=== PATIENT | male | born 1940 | race Caucasian/White ===

== ENCOUNTER → 2019-12-08 | Outpatient (CLI) | payer MEDICARE ==
[~2019-12-08] MED LIST: ALL10TAB29 PO; ALLO100T PO; ASPI81TA26 PO; FURO40TA2 PO; GASTROGRAFIN SOLUTION 30ML (Q9963) As Ordered ONE; GLIM4TAB5 PO; ISOVUE-370 76% 100ML VIAL (Q9967) As Ordered ONE; LANTINJ4 SC; LOPR1TAB6 PO; NEUR600T PO; PROAAER10 INH; PROB1CAP10 PO; VITMTA PO
--- NOTE | 2019-12-08 17:34 | REP ---
CT of the chest with IV contrast for lymphoma restaging. There are no comparison chest CTs. The patient had a PET scan on 02/17/2014. A PET scan was negative for hypermetabolic foci. There are no lung masses or nodules. There are no infiltrates or pleural effusions. There are a few borderline enlarged lymph nodes in the aorticopulmonic window measuring up to 9 mm. There is no other mediastinal lymph node enlargement. There is a borderline enlarged right hilar node measuring up to 8 mm short axis. There is no left hilar lymph node enlargement. There are enlarged nodes in the axilla bilaterally measuring up to 12 mm short axis. The thoracic aorta is unremarkable except for calcified atheroma. Cardiac size is normal. There is no pericardial effusion. There are no lytic, blastic or destructive skeletal changes. There are sternotomy wires. Impression: There are enlarged axillary nodes bilaterally. There are borderline enlarged mediastinal nodes and a borderline enlarged right hilar node. There are no infiltrates or pleural effusions. There are no lung masses or nodules Electronically Signed by Ck Vallejo MD 12/08/2019 05:26 P
--- NOTE | 2019-12-08 17:55 | REP ---
CT of the abdomen pelvis with IV and oral contrast for restaging lymphoma. The study performed contiguously with the chest CT. There are no comparison abdominal the CT studies. The the patient had a PET scan on 02/17/2014 that was negative for hypermetabolic foci. The hepatic parenchyma is homogeneous and unremarkable. There are tiny gallbladder calculi versus milk of calcium in the gallbladder neck. The gallbladder is otherwise unremarkable. The pancreas and spleen are unremarkable. The adrenals are unremarkable. The kidneys are unremarkable. There is wall thickening of the gastric antrum. This is nonspecific and could be inflammatory or could be from an infiltrative process such as lymphoma. The abdominal aorta is unremarkable. There is no periaortic adenopathy or mass. No mesenteric adenopathy is identified. There is no ascites. The bowel loops are otherwise unremarkable. Pelvis: The appendix is unremarkable. The bladder is unremarkable. There is no adenopathy or ascites. The pelvic bowel loops are unremarkable. There are no lytic, blastic or destructive skeletal changes. There is degenerative disc disease in the lumbar spine. Impression: There is wall thickening of the gastric antrum, nonspecific, artifact from under distension versus inflammatory process versus infiltrative process such as lymphoma. No lymphadenopathy. No ascites. No masses or nodules otherwise. Degenerative disc disease in the lumbar spine. Otherwise, negative CT of the abdomen and pelvis. Electronically Signed by Ck Vallejo MD 12/08/2019 05:46 P
== END ==
LOC: M RAD 13:59
PROVIDERS: ATTEND Internal Medicine Hematology & Oncology
DX: C83.30 Diffuse large B-cell lymphoma, unspecified site (principal); I70.0 Atherosclerosis of aorta
CPT/HCPCS: 71260; 74177; Q9963; Q9967

== ENCOUNTER → 2020-02-19 | Outpatient (CLI) | payer MEDICARE ==
[~2020-02-19] MED LIST changes: +CYCL-707 PO; -GASTROGRAFIN SOLUTION 30ML (Q9963) As Ordered ONE; -ISOVUE-370 76% 100ML VIAL (Q9967) As Ordered ONE; +POTA10CA32 PO
== END ==
LOC: M LABSMTC 08:29
PROVIDERS: ATTEND Anesthesiology
DX: Z01.818 Encounter for other preprocedural examination (principal); Z11.59 Encounter for screening for other viral diseases

== ENCOUNTER 2020-02-22 10:12 | Day surgery (SDC) | payer MEDICARE ==
[~2020-02-22] VITALS: Ht 170.2 cm; Wt 113.4 kg
[~2020-02-22 10:12] MED LIST changes: +NS 1,000 ML IV ONE
[2020-02-22] MEDS ORDERED: LIDOCAINE 2% 100MG/5ML SDV (FOR ANES.) As Ordered ONE (12:32)
[2020-02-22] MEDS ORDERED: propofoL 200 MG/20 ML VIAL As Ordered ONE (12:32)
[2020-02-22] MEDS ORDERED: fentaNYL 100 MCG/2 ML INJECTION (J3010) As Ordered ONE (12:56)
--- NOTE | 2020-02-22 14:07 | ROOR ---
Patient Name: Capo Us Procedure Date: 02/22/2020 1:48 PM Date of : 1940 Age: 79 Room: [facility] Gender: Male Note Status: Finalized Procedure: Upper GI endoscopy Indications: Abnormal CT of the GI tract Providers: Jesse COTTON MD Referring MD: Jackelyn Varghese Md, Paige Jetre MD Requesting Provider: Medicines: Monitored Anesthesia Care Complications: No immediate complications. Procedure: Pre-Anesthesia Assessment: - The heart rate, respiratory rate, oxygen saturations, blood pressure, adequacy of pulmonary ventilation, and response to care were monitored throughout the procedure. The Endoscope was introduced through the mouth, and advanced to the second part of duodenum. The upper GI endoscopy was accomplished without difficulty. The patient tolerated the procedure well. Findings: The examined esophagus was normal. Scattered moderate inflammation characterized by erosions and granularity was found in the gastric antrum. Biopsies were taken with a cold forceps for histology. The examined duodenum was normal. Impression: - Normal esophagus. - Gastritis: multiple scattered erosions, shallow ulcerations in gastric antrum. Biopsied. - Normal examined duodenum. Recommendation: - Await pathology results. - Use a proton pump inhibitor PO daily. - (the script was sent to your pharmacy on file) - Telephone endoscopist for pathology results in 2 weeks. Jesse Cotton MD Jesse COTTON MD 02/22/2020 2:07:11 PM Electronically signed by Jesse COTTON MD Number of Addenda: 0 Note Initiated On: 02/22/2020 1:48 PM Estimated Blood Loss: Estimated blood loss: none.
[2020-02-22 14:20] VITALS: BP 141/67
== END 2020-02-22 14:48 | disposition home or self-care (01) ==
LOC: M OPP 10:12
PROVIDERS: ATTEND Internal Medicine Gastroenterology
DX: K29.70 Gastritis, unspecified, without bleeding (principal); E11.9 Type 2 diabetes mellitus without complications; I10 Essential (primary) hypertension; R93.3 Abnormal findings on diagnostic imaging of other parts of digestive tract; Z79.4 Long term (current) use of insulin; Z79.82 Long term (current) use of aspirin; Z79.899 Other long term (current) drug therapy; Z88.5 Allergy status to narcotic agent; Z86.79 Personal history of other diseases of the circulatory system; Z85.79 Personal history of other malignant neoplasms of lymphoid, hematopoietic and related tissues; Z87.891 Personal history of nicotine dependence
CPT/HCPCS: 43239; 88305; J3010

== ENCOUNTER → 2020-03-07 | Outpatient (CLI) | payer MEDICARE ==
[~2020-03-07] MED LIST changes: -NS 1,000 ML IV ONE; +OMEP-221 PO
--- NOTE | 2020-03-08 15:49 | REP ---
REASON FOR TODAY'S EXAM: Followup CT scan finding of asymmetric spiculated mixed density nodule in the anterior segment of the upper lobe of the left lung. Prior CT/PET of 02/17/2014 was reviewed. That examination was performed for lymphoma staging. Prior CT examination of the chest, 01/28/2020, from an outside institution was reviewed. Latest prior abdominal and pelvic CT exam obtained 12/08/2019 from our institution was also reviewed. After the intravenous administration of 8.94 mCi of FDG-18, triplane whole body PET/CT was performed from the skull base to the midthigh. The mixed density lung nodule seen on the chest CT of 01/28/2020, is abnormally hypermetabolic, having a maximal SUV value of 16.40. In addition, there is hypermetabolic mediastinal adenopathy having maximal SUV values of 14.53. The hypermetabolic lymph nodes are also seen to be enlarged, the size and shape of which have not changed when the CT component of today's exam has been compared to the prior chest CT. There is hypermetabolic lymphadenopathy also seen in the left suprahilar region with an SUV value of 20.54. There is a focus of abnormal hypermetabolic activity seen in the right femoral neck having an SUV value of 7.84. Other focal areas of scattered hypermetabolic activity are additionally seen in the appendicular and particularly axial skeleton. No other areas of abnormal hypermetabolic activity are seen in the neck, chest, abdomen, or pelvis. IMPRESSION: 1. Abnormal hypermetabolic activity seen in the chest, as described above, consistent with malignancy. 2. Hypermetabolic activity seen in the appendicular and particularly axial skeleton, as described above, etiology of which is uncertain. Review of the patient's history reveals that he has not been receiving chemotherapy, so chemoreactive marrow change cannot be responsible for the finding. Reactive marrow changes from other etiologies exist. This needs to be correlated clinically with appropriate followup. If skeletal metastasis from carcinoma of the lung is of clinical concern, then consider followup with gadolinium-enhanced thoracolumbar spine MRI and gadolinium-enhanced pelvic MRI. Electronically Signed by Jona Carbajal DO 03/08/2020 05:06 P
== END ==
LOC: M PLARAD 14:19
PROVIDERS: ATTEND Internal Medicine Pulmonary Disease
DX: R91.1 Solitary pulmonary nodule (principal)
CPT/HCPCS: 78815; A9552

== ENCOUNTER → 2020-04-19 | Outpatient (CLI) | payer MEDICARE ==
[~2020-04-19] MED LIST changes: +ACET1TAB55 PO; -ALL10TAB29 PO; +ATIV1TAB10 PO; +CEPH500C PO; +CETI-24 PO; +HYOS125TA PO; +LAMI1AER EX; +LIDOCAINE 1% MDV 20ML VIAL As Ordered ONE; +MORP20SO3 PO; +MSIR30TA PO; +SENO8.6T10 PO; +SODIUM BICARBONATE 8.4% INJ 50MEQ 50 ML VIAL As Ordered ONE; +TERB1CRE2 TOP; +TRAM50TA2 PO
--- NOTE | 2020-04-19 12:24 | REP ---
PA CHEST X-RAY: Single view. HISTORY: The patient is immediately status post CT guided needle biopsy procedure. FINDINGS: PA chest radiograph demonstrates a nodular density in the left apex representing the biopsy target. There is no evidence of pneumothorax or hydrothorax. The patient status post prior median sternotomy. Heart is not enlarged. Pleural angles are sharp. IMPRESSION: No complication seen. Electronically Signed by Ever Perry MD 04/19/2020 12:51 P
[2020-04-19 14:05] VITALS: BP 117/56
--- NOTE | 2020-04-19 16:53 | REP ---
CT-guided upper left lobe lung biopsy The procedure is performed by KINJAL Boyer, under the direct supervision of Dr. Perry. The risks and benefits of the procedure were explained to the patient and informed consent was obtained both orally and written. Directly prior to the start of the procedure, a formal timeout was done in the exam room. The left upper lobe lung mass was localized using CT guidance. Skin was prepped and draped in the usual sterile fashion. 6 ml of buffered lidocaine was used as a local anesthetic. Using CT guidance a 19/20 gauge coaxial needle biopsy system was inserted and advanced into the nodule. 6 core biopsy samples were obtained and sent to the lab. CT images obtained directly after the biopsy show no evidence of pneumothorax. After the appropriate amount of monitored convalescence the patient was discharged from the department. Reviewed by KINJAL Arias 04/19/2020 04:01 P Electronically Signed by Ever Perry MD 04/19/2020 04:44 P
== END ==
LOC: M IRPRO 09:50
PROVIDERS: ATTEND Internal Medicine Hematology & Oncology
DX: C34.92 Malignant neoplasm of unspecified part of left bronchus or lung (principal)

== ENCOUNTER → 2020-05-04 | Outpatient (CLI) | payer MEDICARE ==
[~2020-05-04] MED LIST changes: -LIDOCAINE 1% MDV 20ML VIAL As Ordered ONE; -SODIUM BICARBONATE 8.4% INJ 50MEQ 50 ML VIAL As Ordered ONE
== END ==
LOC: M ONCR 14:22
PROVIDERS: ATTEND General Practice
DX: C34.12 Malignant neoplasm of upper lobe, left bronchus or lung (principal)

== ENCOUNTER → 2020-05-12 | Outpatient (CLI) | payer MEDICARE ==
[~2020-05-12] MED LIST changes: +PROHANCE 279.3MG/ML 15ML VIAL As Ordered ONE; +PROHANCE 279.3MG/ML 5ML VIAL As Ordered ONE
--- NOTE | 2020-06-23 11:22 | REP ---
WHOLE BODY RADIONUCLIDE BONE SCAN HISTORY: Evaluate metastasis. COMPARISON: None. TECHNIQUE: 21.5 mCi of Technetium-99m MDP is injected and standard whole body bone scan images are acquired. SCINTIGRAPHIC FINDINGS: There is arthritic uptake in each knee, bilaterally in each wrist, and bilaterally at the ankles. There is a focus of increased uptake in the anterior end of the first thoracic rib on the left and there is increased uptake in the region of the manubrium of the sternum. These areas are of uncertain significance. There is degenerative uptake in the cervical spine facet region on the left. There is a mild scoliosis in the thoracic spine, which is dextroconvex. There is degenerative disk uptake in the mid lumbar spine. IMPRESSION: Degenerative disk and osteoarthritic uptake pattern. Focus of increased uptake in the region of the manubrium and in the left anterior first rib of uncertain significance. Metastatic lesions cannot be excluded at these two locations. Correlation with chest CT study could be considered. MTDD
== END ==
LOC: M RAD 07:50
PROVIDERS: ATTEND General Practice
DX: C34.90 Malignant neoplasm of unspecified part of unspecified bronchus or lung (principal)
CPT/HCPCS: 70553; 78306; A9576

== ENCOUNTER → 2020-05-29 | Outpatient (RCR) | payer MEDICARE ==
[~2020-05-29] MED LIST changes: -PROHANCE 279.3MG/ML 15ML VIAL As Ordered ONE; -PROHANCE 279.3MG/ML 5ML VIAL As Ordered ONE
== END ==
LOC: M ONCR 13:58
PROVIDERS: ATTEND General Practice
DX: C34.12 Malignant neoplasm of upper lobe, left bronchus or lung (principal)

== ENCOUNTER → 2020-06-21 | Outpatient (CLI) | payer MEDICARE ==
[~2020-06-21] MED LIST changes: +LIDOCAINE 1% MDV 20ML VIAL As Ordered ONE; +MIDAZOLAM INJ 2MG/2ML VIAL (J2250 PER 1MG) As Ordered ONE; +ceFAZolin 1GM VIAL (J0690 PER 500MG) As Ordered ONE; +diphenhydrAMINE 50MG/ML VIAL (J1200) As Ordered ONE; +fentaNYL 100 MCG/2 ML INJECTION (J3010) As Ordered ONE
[2020-06-21 17:05] VITALS: BP 134/64
--- NOTE | 2020-06-22 09:41 | IRHP ---
[facility] IR Pre-Procedure H & P General Date of Service: Jun 21, 2020 Procedure: Same Day Surgery Interval History and Physical I have seen the patient and reviewed last H & P performed within 30 days. There is no significant interval change. History of Present Illness Chief Complaint The patient is a 79-year-old male admitted with a reason for visit of Lymphoma. PRE-PROCEDURE DIAGNOSIS: lymphoma HEART: normal rate. LUNGS: normal breathing at rest. ASA Classification ASA Classification: III-Severe systemic dis. Mallampati Score: II NPO: Yes Problems with prior sedation: No Obstructive Sleep Apnea: No Plan moderate sedation Allergies Coded Allergies: oxycodone (Verified Adverse Reaction, Severe, MAKES HIM GO CRAZY, 01/26/19) Home Medications Scheduled Allopurinol (Allopurinol), 200 MG PO DAILY, (Reported) Aspirin (Aspirin EC), 81 MG PO DAILY, (Reported) Cetirizine HCl (Cetirizine HCl), 10 MG PO DAILY, (Reported) Cyclobenzaprine HCl (Cyclobenzaprine HCl), 10 MG PO QHS, (Reported) Furosemide (Furosemide), 40 MG PO DAILY, (Reported) Gabapentin (Neurontin), 600 MG PO BID, (Reported) Glimepiride (Glimepiride), 8 MG PO DAILY, (Reported) Insulin Glargine,Hum.rec.anlog (Lantus Solostar), 30 UNIT SC QAM, (Reported) Lactobacillus Acidophilus (Probiotic Acidophilus), 1 CAP PO DAILY, (Reported) Metoprolol Tartrate (Lopressor), 50 MG PO BID, (Reported) Multivitamins (Thera M Plus Tablet), 1 TAB PO EVERY OTHER DAY, (Reported) Omeprazole (Omeprazole), 40 MG PO DAILY, (Reported) Potassium Chloride (Potassium Chloride), 10 MEQ PO DAILY, (Reported) Scheduled PRN Albuterol Sulfate (Proair Hfa), 2 PUFF INH Q4H PRN for SOB/WHEEZING, (Reported) VS, I&O, 24H, Fishbone Vital Signs/I&O Vital Signs Date Time Temp Pulse Resp B/P (MAP) Pulse Ox O2 Delivery O2 Flow Rate FiO2 06/21/20 17:05 92 19 96 Room Air 06/21/20 15:20 2 06/21/20 13:55 98 LUC FRAZIER MD Jun 22, 2020 09:41
--- NOTE | 2020-06-22 09:43 | POST-OPPD ---
Postoperative Procedure Note Date Of Procedure: Jun 21, 2020 Time Of Procedure: 09:42 IR Ultrasound and fluoroscopy-guided port placement. IR Ultrasound of the neck. IR Moderate sedation. Clinical information: Lymphoma. Physician: Dr. Hernandez. Procedure: The patient was advised of the benefits, risks, and alternatives of the procedure and informed consent was obtained. A time-out was performed with verification of the patient's name, MRN, site of procedure and type of procedure to be performed. The patient was positioned in the supine position on the angiographic table. The site was prepped and draped in the usual sterile fashion. Moderate sedation was performed by the physician including the presence of an independent trained observer who assisted and monitored the patient's level of consciousness and physiologic status. Following the administration of fentanyl and Versed , the physician spent 45 minutes of continuous face to face time with the patient. Ultrasound of the neck reveals a patent and compressible right internal jugular vein. A time study technician radiograph reveals median sternotomy wires. The neck and anterior chest wall were anesthetized with lidocaine. The right internal jugular vein was accessed using a microintroducer needle under ultrasound guidance, via a lateral approach. An 018 wire was advanced into the superior vena cava, the needle was removed and a microsheath was placed. An Amplatz wire was then passed into the inferior vena cava. An incision at the internal jugular vein access site and anterior chest wall were made using a scalpel. An incision was made at the anterior chest wall. A small pocket was created using a combination of blunt and sharp dissection. A tunneling device was then used to pass the catheter from the pocket to the neck puncture site. An 8- [employer] Smart power port was then positioned in the pocket. The catheter was then measured and cut. The introducer sheath was exchanged for a peel-away sheath. The catheter was passed through the peel-away sheath into the internal jugular vein and the peel-away sheath was removed. The port tip was positioned at the cavoatrial junction. The port was then accessed with a To needle. The port flushes and aspirates well. The puncture site in the neck was closed. The chest wall incision was then closed with 2-0 Vicryl and 4-0 Monocryl. Glue and Steri- Strips were applied. A sterile dressing was then applied. The patient tolerated the procedure well and was returned to the PRU in stable condition. Estimated blood loss: <5 ml. Complications: None. Conclusion: 1. Successful placement of an 8-[employer] Smart power port via the right internal jugular vein. The port is ready for immediate use. 2. Patient to follow up in IR clinic in 2 weeks. Thank you for this referral. LUC HERNANDEZ MD Jun 22, 2020 09:43
== END ==
LOC: M IRPRO 13:43
PROVIDERS: ATTEND Internal Medicine Hematology & Oncology
DX: C85.90 Non-Hodgkin lymphoma, unspecified, unspecified site (principal)
CPT/HCPCS: 36561; 99152; 99153; C1769; C1788; C1894; J0690; J1200; J1642; J1644; J2250; J3010

== ENCOUNTER 2020-06-26 13:04 | Outpatient (RCR) | payer MEDICARE ==
[~2020-06-26 13:04] MED LIST changes: -ACET1TAB55 PO; -ATIV1TAB10 PO; -CEPH500C PO; -HYOS125TA PO; -LAMI1AER EX; -LIDOCAINE 1% MDV 20ML VIAL As Ordered ONE; -MIDAZOLAM INJ 2MG/2ML VIAL (J2250 PER 1MG) As Ordered ONE; -MORP20SO3 PO; -MSIR30TA PO; -SENO8.6T10 PO; -TERB1CRE2 TOP; -TRAM50TA2 PO; -ceFAZolin 1GM VIAL (J0690 PER 500MG) As Ordered ONE; -diphenhydrAMINE 50MG/ML VIAL (J1200) As Ordered ONE; -fentaNYL 100 MCG/2 ML INJECTION (J3010) As Ordered ONE
== END 2020-06-28 ==
LOC: M ONCR 13:04
PROVIDERS: ATTEND General Practice
DX: C34.12 Malignant neoplasm of upper lobe, left bronchus or lung (principal)

== ENCOUNTER 2020-06-30 16:44 | Inpatient (IN) | payer MEDICARE ==
[~2020-06-30] VITALS: Ht 170.2 cm; Wt 98.1 kg
[2020-06-30 18:20] VITALS: BP 139/73
[2020-06-30 19:09] LABS: BASO % 0.2 % (0.0-1.0); HEMATOCRIT 32.2 % (42.0-52.0); HEMOGLOBIN 10.5 g/dl (13.5-17.5); LYMPH # 0.2 10^3/uL (1.5-5.0); LYMPH % 4.7 % (24.0-44.0); MEAN CORPUSCULAR HGB CONC 32.6 g/dl (32.0-36.5); MONO # 0.3 10^3/uL (0.0-0.8); MONO % 5.5 % (0.0-5.0); NEUTROPHILS # 4.5 10^3/uL (1.5-8.5); NEUTROPHILS % 88.8 % (36.0-66.0); PLATELET COUNT, AUTOMATED 115 10^3/uL (150-450); RED BLOOD COUNT 3.39 10^6/uL (4.30-6.10); WHITE BLOOD COUNT 5.1 10^3/uL (4.0-10.0)
[2020-06-30 19:34] LABS: ALBUMIN 2.7 GM/DL (3.2-5.2); ALT/SGPT 27 U/L (12-78); BILIRUBIN,TOTAL 0.7 MG/DL (0.2-1.0); BLOOD UREA NITROGEN 28 MG/DL (7-18); C REACTIVE PROTEIN QUANTITATIV 2.39 MG/DL (0.00-0.30); CALCIUM LEVEL 8.8 MG/DL (8.8-10.2); CARBON DIOXIDE LEVEL 25 MEQ/L (21-32); CHLORIDE LEVEL 105 MEQ/L (98-107); CREATININE FOR GFR 1.06 MG/DL (0.70-1.30); GLOMERULAR FILTRATION RATE > 60.0 (>35); GLUCOSE, FASTING 137 MG/DL (70-100); POTASSIUM SERUM 5.2 MEQ/L (3.5-5.1); SODIUM LEVEL 135 MEQ/L (136-145); TOTAL PROTEIN 6.6 GM/DL (6.4-8.2)
[2020-06-30 19:48] LABS: ERYTHROCYTE SEDIMENTATION RATE 43 mm/hr (0-20)
--- NOTE | 2020-06-30 19:50 | REPVR ---
PROCEDURE INFORMATION: Exam: XR Bilateral Hips with Pelvis when Performed Exam date and time: 06/30/2020 7:43 PM Age: 79 years old Clinical indication: Hip pain; Bilateral; Additional info: Pain h/o cancer R/O mets TECHNIQUE: Imaging protocol: XR bilateral hips with pelvis when performed. Views: 2 views. COMPARISON: CT ABD PELVIS WITH CONTRAST 12/08/2019 3:49 PM FINDINGS: Bones/joints: Degenerative arthropathy both hip joints. Fracture greater trochanter on the left. Pathologic fracture not excluded. Soft tissues: Unremarkable. IMPRESSION: Fracture greater trochanter on the left. Pathologic fracture not excluded. Electronically signed by: Sergey Bella On 06/30/2020 19:49:54 PM
[2020-06-30] MEDS ORDERED: TERB1CRE2 TOP (19:58)
[2020-06-30] MEDS ORDERED: LAMI1AER EX (19:58)
[2020-06-30] MEDS: HumaLOG INSULIN (NovoLOG) PER UNIT SC SCH (21:00)
[2020-06-30] MEDS ORDERED: LORazepam 2 MG/ML VIAL IV PRN (21:30)
[2020-06-30] MEDS ORDERED: ONDANSETRON 4MG/2ML VIAL IV PRN (21:30)
[2020-06-30] MEDS ORDERED: MORPHINE 2 MG/ML 1ML VIAL (J2270) IV PRN (21:30)
[2020-06-30] MEDS ORDERED: ALBUTEROL 90 MCG/ACT 8GM HFA INHALER INH PRN (21:30)
[2020-06-30 22:00] VITALS: BP 150/68
[2020-06-30] MEDS: CLOTRIMAZOLE 1% TOPICAL CREAM 30GM TOP SCH (22:10)
[2020-06-30] MEDS: GABAPENTIN 300 MG CAP PO SCH (22:11)
[2020-06-30] MEDS: CYCLOBENZAPRINE 10MG TABLET PO SCH (22:11)
[2020-07-01] MEDS ORDERED: DEXTROSE 50% 50 ML SYRINGE IV PRN (00:45)
[2020-07-01] MEDS ORDERED: GLUCAGON INJ 1MG VIAL SC PRN (00:45)
[2020-07-01] MEDS ORDERED: GLUCOSE 4GM CHEW TABLET PO PRN (00:45)
--- NOTE | 2020-07-01 00:48 | HPEPDOC ---
[facility] Medical History & Physical Date of Admission Jun 30, 2020 Date of Service: Jun 30, 2020 Attending Physician: JENNIFER ERVIN MD History and Physical CHIEF COMPLAINT: transfer from [place] HISTORY OF PRESENT ILLNESS: Capo Us is an 79 YO M with history of stage III NSCLC with mets to the pelvis and femoral neck who presented as transfer from [place] for increased pain in left hip. The patient reports increasing difficulty getting around his house and pain out of control with respect to his current oral pain regimen at home. His daughter contacted radiation oncologist, Dr. Jann Villa, at [facility] who recommends palliative radiation therapy to be done on Friday07/03/20. At the time of my interview the patient reports pain is about 7/10 but has improved since he presented at [facility]. In looking at records brought over from [facility] a [facility] form notes that the patient wishes to be "Comfort measures only." Per my discussion with him, this is accurate and he is only seeking pain management at this time, but would like to continue his daily medications, such as his insulin. Given his prognosis and to the extent of his cancer, he will most likely need a Palliative Care or hospice consult in respect to his current wishes. PAST MEDICAL HISTORY: 1. Marginal zone NHL (PDL-1 positive) first diagnosed in 2013 currently undergoing radiation 2. 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 HTN 4. Asthma 5. Gout 6. CAD 7. DM2 PAST SURGICAL HISTORY: 1. Bone marrow biopsy 2. L shoulder surgery 3. Heart bypass SOCIAL HISTORY: Former 2 ppd smoker, quit >30 years ago. Occasional alcohol. Denies illicit drugs FAMILY HISTORY: noncontributory ALLERGIES: Please see below. REVIEW OF SYSTEMS: 10-point ROS was negative other than that stated in HPI above. HOME MEDICATIONS: Please see below. VITAL SIGNS: see below GENERAL: alert and oriented, in no apparent distress, pleasant and conversant in full sentences. HEENT: PERRL, EOMI, Oral mucous membranes are moist without lesions. NECK: The patient has no noted JVD. No adenopathy is appreciated. No thyromegaly CHEST/LUNGS: Lungs are clear bilaterally without rhonchi, rales, or wheezes. There is no subcutaneous air appreciated. There is no tenderness to the chest wall. HEART:Regular rate and rhythm. No murmurs, rubs, or gallops are appreciated. Distal pulses are 2+. No carotid bruits appreciated. ABDOMEN: Soft, nontender, and nondistended. Bowel sounds are positive. No organomegaly is appreciated. No masses are appreciated. There are no peritoneal signs. There is no Winters sign. EXTREMITIES: Trace pitting edema and bilateral lower extremities. There is no focal long bone tenderness or deformity. MUSCULOSKELETAL: Left lower extremity strength 4/5, RLE strength 5/5, no pain with passive leg raise SKIN: The patients skin is warm and dry, without rashes or lesions. PSYCHIATRIC: AAO x 3, normal mood/affect NEUROLOGIC: The patient has 5/5 strength to the upper and lower extremities bilaterally. Sensation is intact throughout. Deep tendon reflexes are 2+ in all four extremities. There are no deficits to the cranial nerves. LABORATORY DATA: See below. IMAGING: HIP XR: FINDINGS: Bones/joints: Degenerative arthropathy both hip joints. Fracture greater trochanter on the left. Pathologic fracture not excluded. Soft tissues: Unremarkable. IMPRESSION: Fracture greater trochanter on the left. Pathologic fracture not excluded. MICROBIOLOGY: Please see below. ASSESSMENT: This is an 79-year-old male with history of non-small cell lung cancer of the left upper lobe metastatic to the pelvis presenting as transfer from [place] for pain management. The patient is known to [facility] radiation oncology and plans are in place for palliative radiation to hip to be done starting on 07/03/2020. The patient is currently comfort measures only but wishes to receive routine daily medications. He will likely need Palliative care consult. PLAN: 1. Non-small cell lung cancer in MARU metastatic to bone: -Pain management with Morphine, Ativan for anxiety -Plan for Radiation Oncology palliative radiation with planning to be done 07/03/20. See note in chart from Dr. Villa -Cancer navigator/Palliative care consult 2. DM2: -Levemir 22u QAM + SSI/hypoglycemic protocol 3. Hx Gout: -Continue Allopurinol 4. HTN: -Continue Metoprolol with hold parameters 5. GERD: -Continue Omeprazole Vital Signs Vital Signs Date Time Temp Pulse Resp B/P (MAP) Pulse Ox O2 Delivery O2 Flow Rate FiO2 06/30/20 18:20 98.1 75 19 139/73 (95) 98 Room Air Laboratory Data Labs 24H Laboratory Tests 2 06/30/20 18:53: Immature Granulocyte % (Auto) 0.8, Neutrophils (%) (Auto) 88.8H, Lymphocytes (%) (Auto) 4.7L, Monocytes (%) (Auto) 5.5H, Eosinophils (%) (Auto) 0.0, Basophils (%) (Auto) 0.2, Neutrophils # (Auto) 4.5, Lymphocytes # (Auto) 0.2L, Monocytes # (Auto) 0.3, Eosinophils # (Auto) 0.0, Basophils # (Auto) 0.0, Nucleated Red Blood Cells % (auto) 0.0, Erythrocyte Sedimentation Rate 43H, Anion Gap 5L, Glomerular Filtration Rate > 60.0, Lactic Acid Level 1.8, Calcium Level 8.8, Total Bilirubin 0.7, Aspartate Amino Transf (AST/SGOT) 45H, Alanine Aminotransferase (ALT/SGPT) 27, Alkaline Phosphatase 113, C-Reactive Protein, Quantitative 2.39H, Total Protein 6.6, Albumin 2.7L, Albumin/Globulin Ratio 0.7 CBC/BMP Laboratory Tests 06/30/20 18:53 Home Medications Scheduled Allopurinol (Allopurinol) 100 Mg Tab, 200 MG PO DAILY Aspirin (Aspirin EC) 81 Mg Tab, 81 MG PO DAILY Cetirizine HCl (Cetirizine HCl) 10 Mg Tab, 10 MG PO DAILY Cyclobenzaprine HCl (Cyclobenzaprine HCl) 10 Mg Tablet, 10 MG PO QHS Furosemide (Furosemide) 40 Mg Tablet, 40 MG PO DAILY Gabapentin (Neurontin) 600 Mg Tab, 600 MG PO BID Glimepiride (Glimepiride) 4 Mg Tab, 4 MG PO DAILY Insulin Glargine,Hum.rec.anlog (Lantus Solostar) 100 Unit/Ml Inj, 22 UNIT SC QAM Lactobacillus Acidophilus (Probiotic Acidophilus) 1 Cap Cap, 1 CAP PO DAILY Metoprolol Tartrate (Lopressor) 50 Mg Tab, 50 MG PO BID Multivitamins (Thera M Plus Tablet) 1 Tab Tab, 1 TAB PO EVERY OTHER DAY Omeprazole (Omeprazole) 40 Mg Capsule.dr, 40 MG PO DAILY Potassium Chloride (Potassium Chloride) 10 Meq Capsule.er, 10 MEQ PO DAILY Terbinafine HCl (Terbinafine) 30 Gm Cream..g., 1 APLCT TOP BID apply to abdomin Scheduled PRN Albuterol Sulfate (Proair Hfa) 108 Mcg/Act Aer, 2 PUFF INH Q4H PRN for SOB/WHEEZING Allergies Coded Allergies: oxycodone (Verified Adverse Reaction, Severe, MAKES HIM GO CRAZY, 01/26/19) A-FIB/CHADSVASC A-FIB History Current/History of A-Fib/PAF?: No GME ATTESTATION GME ATTESTATION My faculty preceptor for this patient encounter was physically present during the encounter and was fully available. All aspects of the patient interview, examination, medical decision making process, and medical care plan development were reviewed and approved by the faculty preceptor. The faculty preceptor is aware and concurs with the plan as stated in the body of this note and will attest to such by his/her cosignature. ATTENDING NOTE TIME OF SERVICE 950PM I reviewed the note and agree with the findings as documented with the following additions/changes Chief compliant: hip pain is an 79 yr old w a hx of metastatic lung cancer who was transferred from [facility] for management of left hip pain likely 2/2 metastatic disease. Plan: pain meds/ AM team to consult Radiation Oncology to determine if he is a Candidate for palliative? Radiation and Palliative care to clarify his goals of care #CAD - c/w ASA and metoprolol #Obesity w BMI of 33.9 complicates care DVT Px w lovenox rest per 's H&P RENETTA BROWN MD Jun 30, 2020 20:48 JENNIFER ERVIN MD Jul 01, 2020 01:25
[2020-07-01 06:00] VITALS: BP 123/60
[2020-07-01] MEDS: HumaLOG INSULIN (NovoLOG) PER UNIT SC SCH ×4 (07:30→21:00)
[2020-07-01] MEDS: LEVEMIR (INSULIN DETEMIR) 1 UNITS/0.01ML SC SCH (08:44)
[2020-07-01] MEDS: allopurinoL 100 MG TAB PO SCH (08:45)
[2020-07-01] MEDS: ASPIRIN 81 MG ENTERIC TAB PO SCH (08:45)
[2020-07-01] MEDS: OMEPRAZOLE 20 MG CAP PO SCH (08:45)
[2020-07-01] MEDS: GABAPENTIN 300 MG CAP PO SCH ×2 (08:45→20:58)
[2020-07-01] MEDS: LACTOBACILLUS ACIDOPHILUS CAP (BACID) PO SCH (08:45)
[2020-07-01] MEDS: ENOXAPARIN 40MG/0.4ML SYRINGE (J1650 PER 10MG) SC SCH (08:45)
[2020-07-01] MEDS: CLOTRIMAZOLE 1% TOPICAL CREAM 30GM TOP SCH ×2 (08:46→20:58)
[2020-07-01] MEDS: FUROSEMIDE 40 MG TAB PO SCH (08:46)
[2020-07-01] MEDS: METOPROLOL TART 50 MG TAB PO SCH ×3 (08:46→21:02)
--- NOTE | 2020-07-01 08:53 | IPNPDOC ---
Date Seen The patient was seen on 07/01/20. Progress Note SUBJECTIVE: Patient was seen and examined at the bedside chart is reviewed. He is lying supine in bed and not moving. Says that his pain is 0 out of 10 when he tries to set up an attempt to ambulate. Patient says that the pain at home had been 7 to 10-10 out of 10 on a pain scale . Located at the left hip. Patient has had no issues overnight. He is currently awaiting evaluation by orthopedic surgery. X- ray of the hip shows pathologic fracture of the left hip. OBJECTIVE PHYSICAL EXAMINATION: VITAL SIGNS: Please see below. GENERAL: Asleep but easily arousable, able to converse without any respiratory distress. Face is symmetric HEENT: PERRL, EOMI, Oral mucous membranes are moist without lesions. Appears his stated age. No cervical lymphadenopathy NECK: No carotid bruit no JVD No thyromegaly CHEST/LUNGS: Lungs are clear bilaterally without rhonchi, rales, or wheezes. Air entry is equal bilaterally. No adventitious breath sounds HEART: S1, S2 Regular rate and rhythm. No murmurs, rubs, or gallops are appreciated. Distal pulses are 2+. No carotid bruits appreciated. ABDOMEN: Soft, nontender, and nondistended. Bowel sounds are positive. No organomegaly is appreciated. No masses are appreciated. . No abdominal bruit EXTREMITIES: Trace pitting edema and bilateral lower extremities. There is no focal long bone tenderness or deformity. MUSCULOSKELETAL: Limited range of motion on the left secondary to severe pain., Unable to flex and extend at the hip on the left SKIN: The patients skin is warm and dry, without rashes or lesions. PSYCHIATRIC: AAO x 3, normal mood/affect NEUROLOGIC: 5 out of 5 strength bilateral upper extremities right lower extremity 5 out of 5 strength. Gait was not tested. Unable to assess left lower extremity due to severe pain LABORATORY DATA, IMAGING STUDIES, MICROBIOLOGY: Please see below. PROCEDURE INFORMATION: Exam: XR Bilateral Hips with Pelvis when Performed Exam date and time: 06/30/2020 7:43 PM Age: 79 years old Clinical indication: Hip pain; Bilateral; Additional info: Pain h/o cancer R/O mets TECHNIQUE: Imaging protocol: XR bilateral hips with pelvis when performed. Views: 2 views. COMPARISON: CT ABD PELVIS WITH CONTRAST 12/08/2019 3:49 PM FINDINGS: Bones/joints: Degenerative arthropathy both hip joints. Fracture greater trochanter on the left. Pathologic fracture not excluded. Soft tissues: Unremarkable. IMPRESSION: Fracture greater trochanter on the left. Pathologic fracture not excluded. Electronically signed by: Sregey Jena On 06/30/2020 19:49:54 PM ASSESSMENT: 79 YO M with history of stage III NSCLC with mets to the pelvis and femoral neck who presented as transfer from [place] for increased pain in left hip. His daughter contacted radiation oncologist, Dr. Jann Villa, at [facility] who recommends palliative radiation therapy to be done on Friday07/03/20. 1. Pathologic fracture of the left greater trochanter secondary to bone metastasis from primary lung cancer 2. 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 HTN 4. Asthma 5. Gout 6. CAD 7. DM2 8. Marginal zone NHL (PDL-1 positive) first diagnosed in 2013 currently undergoing radiation PLAN: Patient is appropriate for palliative care, possible comfort measures and hospice for pain control. He is currently on oral medications and IV for breakthrough pain. Palliative radiation is planned for Friday by radiation oncologist, Dr. Villa. Per patient's wishes. All his home medications have been restarted. He currently has a possible pathologic fracture of the left greater trochanter. Orthopedic surgery has been consulted and oriented. She reviewed the patient's x-ray and determine activity level to prevent further debility and injury. Patient has been encouraged to ask for pain medications. We'll monitor for any side effects including constipation, confusion, respiratory distress. Patient has a very poor overall prognosis. We will defer to his medical oncologist to discuss palliative care and comfort measures VS, I&O, [facility] V[facility] Signs/I&O Vital Signs Date Time Temp Pulse Resp B/P (MAP) Pulse Ox O2 Delivery O2 Flow Rate FiO2 07/01/20 06:00 97.7 86 18 123/60 (81) 96 Room Air I&O- Last 24 Hours up to 6 AM 07/01/20 06:00 Intake Total 220 ml Output Total 500 ml Balance -280 ml Laboratory Data 24H LABS Laboratory Tests 2 06/30/20 18:53: Immature Granulocyte % (Auto) 0.8, Neutrophils (%) (Auto) 88.8H, Lymphocytes (%) (Auto) 4.7L, Monocytes (%) (Auto) 5.5H, Eosinophils (%) (Auto) 0.0, Basophils (%) (Auto) 0.2, Neutrophils # (Auto) 4.5, Lymphocytes # (Auto) 0.2L, Monocytes # (Auto) 0.3, Eosinophils # (Auto) 0.0, Basophils # (Auto) 0.0, Nucleated Red Blood Cells % (auto) 0.0, Erythrocyte Sedimentation Rate 43H, Anion Gap 5L, Glomerular Filtration Rate > 60.0, Lactic Acid Level 1.8, Calcium Level 8.8, Total Bilirubin 0.7, Aspartate Amino Transf (AST/SGOT) 45H, Alanine Aminotransferase (ALT/SGPT) 27, Alkaline Phosphatase 113, C-Reactive Protein, Quantitative 2.39H, Total Protein 6.6, Albumin 2.7L, Albumin/Globulin Ratio 0.7 07/01/20 05:57: Bedside Glucose (Misc Panel) 86 CBC/BMP Laboratory Tests 06/30/20 18:53 RANDI ARGUELLO MD Jul 01, 2020 08:39
[2020-07-01] MEDS ORDERED: ISOVUE-370 76% 100ML VIAL As Ordered ONE (10:47)
--- NOTE | 2020-07-01 11:45 | REPVR ---
PROCEDURE INFORMATION: Exam: CT Left Lower Extremity Without Contrast; Thigh Exam date and time: 07/01/2020 11:04 AM Age: 79 years old Clinical indication: Condition or disease; Other: ? Lesions, known FX; Additional info: FX need thin cuts ! ! CT entire femur ? lesions TECHNIQUE: Imaging protocol: CT of the Left lower extremity without contrast was performed. Exam focused on the thigh. Radiation optimization: All CT scans at this facility use at least one of these dose optimization techniques: automated exposure control; mA and/or kV adjustment per patient size (includes targeted exams where dose is matched to clinical indication); or iterative reconstruction. COMPARISON: Bilateral hip radiographs 06/30/20 FINDINGS: Bones/joints: Multifocal lytic lesions in the visualized left lower extremity including the acetabular roof, proximal left femur, and proximal left tibia, consistent with metastases or multiple myeloma. Pathologic fracture involving the left greater trochanter in association with a 4.1 by 2.2 by 3.0 cm lytic lesion. Degenerative change. Soft tissues: Localized subcutaneous edema in the lateral aspect of the left lower leg and knee. Vasculature: Vascular calcifications. Lymph nodes: Subcentimeter lymph nodes. Bowel: Prominent stool. Bladder: Incompletely visualized contrast filled bladder. Reproductive: Punctate prostate calcifications. IMPRESSION: 1. Multifocal lytic lesions in the visualized left acetabular roof, proximal left femur, and proximal left tibia, consistent with metastases or multiple myeloma. 2. Pathologic fracture involving the left greater trochanter in association with a 4.1 by 2.2 by 3.0 cm lytic lesion. 3. Additional findings as described above. Electronically signed by: Jean Claude Reeder On 07/01/2020 11:44:51 AM
[2020-07-01] MEDS ORDERED: PERCOCET 5MG/325MG TAB PO PRN ×2 (13:45)
[2020-07-01] MEDS ORDERED: MORPHINE 30 MG TAB **MSIR PO PRN (13:45)
[2020-07-01 14:00] VITALS: BP 118/69
[2020-07-01] MEDS ORDERED: NALOXONE INJ 0.4MG/1ML VIAL (J2310 PER 1MG) IV PRN (14:00)
[2020-07-01] MEDS: ACETAMINOPHEN TAB 650MG DOSE (2X325MG) PO PRN ×2 (14:13→20:58)
[2020-07-01 14:40] LABS: HEMATOCRIT 32.9 % (42.0-52.0); HEMOGLOBIN 10.7 g/dl (13.5-17.5); MEAN CORPUSCULAR HEMOGLOBIN 30.9 pg (27.0-33.0); MEAN CORPUSCULAR HGB CONC 32.5 g/dl (32.0-36.5); MEAN CORPUSCULAR VOLUME 95.1 fl (80.0-96.0); PLATELET COUNT, AUTOMATED 132 10^3/uL (150-450); RED BLOOD COUNT 3.46 10^6/uL (4.30-6.10); WHITE BLOOD COUNT 4.4 10^3/uL (4.0-10.0)
[2020-07-01 15:00] LABS: BLOOD UREA NITROGEN 29 MG/DL (7-18); CALCIUM LEVEL 8.7 MG/DL (8.8-10.2); CARBON DIOXIDE LEVEL 30 MEQ/L (21-32); CHLORIDE LEVEL 105 MEQ/L (98-107); CREATININE FOR GFR 0.99 MG/DL (0.70-1.30); GLOMERULAR FILTRATION RATE > 60.0 (>35); GLUCOSE, FASTING 100 MG/DL (70-100); POTASSIUM SERUM 4.2 MEQ/L (3.5-5.1); SODIUM LEVEL 140 MEQ/L (136-145)
[2020-07-01 19:57] VITALS: BP 110/57
[2020-07-01] MEDS: CYCLOBENZAPRINE 10MG TABLET PO SCH (20:58)
[2020-07-02 06:08] VITALS: BP_SYST 113; BP_SYST 130; BP_DIAS 65; BP_DIAS 69
[2020-07-02 07:01] LABS: HEMATOCRIT 33.4 % (42.0-52.0); HEMOGLOBIN 10.9 g/dl (13.5-17.5); MEAN CORPUSCULAR HEMOGLOBIN 31.4 pg (27.0-33.0); MEAN CORPUSCULAR HGB CONC 32.6 g/dl (32.0-36.5); MEAN CORPUSCULAR VOLUME 96.3 fl (80.0-96.0); PLATELET COUNT, AUTOMATED 126 10^3/uL (150-450); RED BLOOD COUNT 3.47 10^6/uL (4.30-6.10); WHITE BLOOD COUNT 4.2 10^3/uL (4.0-10.0)
[2020-07-02 07:17] LABS: BLOOD UREA NITROGEN 25 MG/DL (7-18); CARBON DIOXIDE LEVEL 31 MEQ/L (21-32); CHLORIDE LEVEL 106 MEQ/L (98-107); CREATININE FOR GFR 0.98 MG/DL (0.70-1.30); GLOMERULAR FILTRATION RATE > 60.0 (>35); GLUCOSE, FASTING 64 MG/DL (70-100); POTASSIUM SERUM 4.4 MEQ/L (3.5-5.1); SODIUM LEVEL 141 MEQ/L (136-145)
[2020-07-02] MEDS: HumaLOG INSULIN (NovoLOG) PER UNIT SC SCH ×4 (07:29→21:00)
[2020-07-02] MEDS: ASPIRIN 81 MG ENTERIC TAB PO SCH (08:49)
[2020-07-02] MEDS: METOPROLOL TART 50 MG TAB PO SCH ×2 (08:49→20:47)
[2020-07-02] MEDS: FUROSEMIDE 40 MG TAB PO SCH (08:49)
[2020-07-02] MEDS: allopurinoL 100 MG TAB PO SCH (08:50)
[2020-07-02] MEDS: LEVEMIR (INSULIN DETEMIR) 1 UNITS/0.01ML SC SCH (08:50)
[2020-07-02] MEDS: GABAPENTIN 300 MG CAP PO SCH ×2 (08:50→20:45)
[2020-07-02] MEDS: ENOXAPARIN 40MG/0.4ML SYRINGE (J1650 PER 10MG) SC SCH (08:51)
[2020-07-02] MEDS: LACTOBACILLUS ACIDOPHILUS CAP (BACID) PO SCH (08:51)
[2020-07-02] MEDS: OMEPRAZOLE 20 MG CAP PO SCH (08:51)
[2020-07-02] MEDS: CLOTRIMAZOLE 1% TOPICAL CREAM 30GM TOP SCH ×2 (08:51→20:47)
--- NOTE | 2020-07-02 09:22 | IPNPDOC ---
Date Seen The patient was seen on 07/02/20. Progress Note SUBJECTIVE: Patient was seen and examined at the bedside chart is been reviewed. He says he has no pain when he is laying in bed. Patient has had no fever, chills, no dysuria, urgency, frequency. Tolerating his diet well. Orthopedic surgery was consulted yesterday regarding the left hip, questionable pathologic fracture from history of lung cancer with bone metastasis. He is scheduled to have radiation treatment on Friday. OBJECTIVE PHYSICAL EXAMINATION: VITAL SIGNS: Please see below. GENERAL: Supine awake, alert, oriented to person, place and time. No conversational dyspnea HEENT: Face is symmetric. Tongue is PERRL, EOMI, Oral mucous membranes are moist without lesions. Appears his stated age. No cervical lymphadenopathy NECK: No carotid bruit no JVD No thyromegaly CHEST/LUNGS: Lungs are clear bilaterally without rhonchi, rales, or wheezes. Air entry is equal bilaterally. No adventitious breath sounds HEART: S1, S2 Regular rate and rhythm. No murmurs, rubs, or gallops are appre ciated. Distal pulses are 2+. No carotid bruits appreciated. ABDOMEN: Soft, nontender, and nondistended. Bowel sounds are positive. No organomegaly is appreciated. No masses are appreciated. . No abdominal bruit EXTREMITIES: Trace pitting edema and bilateral lower extremities. There is no focal long bone tenderness or deformity. MUSCULOSKELETAL: Limited range of motion on the left secondary to severe pain., Unable to flex and extend at the hip on the left SKIN: The patients skin is warm and dry, without rashes or lesions. PSYCHIATRIC: AAO x 3, normal mood/affect NEUROLOGIC: 5 out of 5 strength bilateral upper extremities right lower extremity 5 out of 5 strength. Gait was not tested. Unable to assess left lower extremity due to severe pain LABORATORY DATA, IMAGING STUDIES, MICROBIOLOGY: Please see below. PROCEDURE INFORMATION: Exam: CT Left Lower Extremity Without Contrast; Thigh Exam date and time: 07/01/2020 11:04 AM Age: 79 years old Clinical indication: Condition or disease; Other: ? Lesions, known FX; Additional info: FX need thin cuts ! ! CT entire femur ? lesions TECHNIQUE: Imaging protocol: CT of the Left lower extremity without contrast was performed. Exam focused on the thigh. Radiation optimization: All CT scans at this facility use at least one of these dose optimization techniques: automated exposure control; mA and/or kV adjustment per patient size (includes targeted exams where dose is matched to clinical indication); or iterative reconstruction. COMPARISON: Bilateral hip radiographs 06/30/20 FINDINGS: Bones/joints: Multifocal lytic lesions in the visualized left lower extremity including the acetabular roof, proximal left femur, and proximal left tibia, consistent with metastases or multiple myeloma. Pathologic fracture involving the left greater trochanter in association with a 4.1 by 2.2 by 3.0 cm lytic lesion. Degenerative change. Soft tissues: Localized subcutaneous edema in the lateral aspect of the left lower leg and knee. Vasculature: Vascular calcifications. Lymph nodes: Subcentimeter lymph nodes. Bowel: Prominent stool. Bladder: Incompletely visualized contrast filled bladder. Reproductive: Punctate prostate calcifications. IMPRESSION: 1. Multifocal lytic lesions in the visualized left acetabular roof, proximal left femur, and proximal left tibia, consistent with metastases or multiple myeloma. 2. Pathologic fracture involving the left greater trochanter in association with a 4.1 by 2.2 by 3.0 cm lytic lesion. 3. Additional findings as described above. PROCEDURE INFORMATION: Exam: XR Bilateral Hips with Pelvis when Performed Exam date and time: 06/30/2020 7:43 PM Age: 79 years old Clinical indication: Hip pain; Bilateral; Additional info: Pain h/o cancer R/O mets TECHNIQUE: Imaging protocol: XR bilateral hips with pelvis when performed. Views: 2 views. COMPARISON: CT ABD PELVIS WITH CONTRAST 12/08/2019 3:49 PM FINDINGS: Bones/joints: Degenerative arthropathy both hip joints. Fracture greater trochanter on the left. Pathologic fracture not excluded. Soft tissues: Unremarkable. IMPRESSION: Fracture greater trochanter on the left. Pathologic fracture not excluded. Electronically signed by: Sergey Bella On 06/30/2020 19:49:54 PM ASSESSMENT: 79 YO M with history of stage III NSCLC with mets to the pelvis and femoral neck who presented as transfer from [place] for increased pain in left hip. His daughter contacted radiation oncologist, Dr. Jann Villa, at [facility] who recommends palliative radiation therapy to be done on Friday07/03/20. 1. Pathologic fracture of the left greater trochanter secondary to bone metastasis from primary lung cancer.Ct femur07/01/20: Pathologic fracture involving the left greater trochanter in association with a 4.1 by 2.2 by 3.0 cm lytic lesion. Patient is appropriate for palliative care, possible comfort measures and hospice for pain control. He is currently on oral medications and IV for breakthrough pain. Palliative radiation is planned for Friday by radiation oncologist, Dr. Villa. Per patient's wishes. monitor for any side effects including constipation, confusion, respiratory distress. Patient has a very poor overall prognosis. We will defer to his medical oncologist to discuss palliative care and comfort measures 2. 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 Hospice CONSULT to activity level will be deferred to orthopedic surgery due to increased risk of injury with a pathologic fracture of the left hip. 3. HTN, chronic resumed in home meds 4. Asthma, chronic, no acute exacerbation 5. Gout, chronic 6. CAD, chronic. No acute ischemic complaint 7. DM2 on consistentcarbs diet, insulin sliding scale and hypoglycemic protocol 8. Marginal zone NHL (PDL-1 positive) first diagnosed in 2013 currently undergoing radiation , deferred to outpatient medical oncologist for further treatment. VS, I&O, 24H, Fishbone Vital Signs/I&O Vital Signs Date Time Temp Pulse Resp B/P (MAP) Pulse Ox O2 Delivery O2 Flow Rate FiO2 07/02/20 08:49 81 130/65 07/02/20 06:08 98.5 20 97 Room Air I&O- Last 24 Hours up to 6 AM 07/02/20 06:00 Intake Total 1200 ml Output Total 650 ml Balance 550 ml Laboratory Data 24H LABS Laboratory Tests 2 07/01/20 11:23: Bedside Glucose (Misc Panel) 160H 07/01/20 14:25: Nucleated Red Blood Cells % (auto) 0.0, Anion Gap 5L, Glomerular Filtration Rate > 60.0, Calcium Level 8.7L 07/01/20 16:58: Bedside Glucose (Misc Panel) 80L 07/01/20 19:40: Bedside Glucose (Misc Panel) 134H 07/02/20 06:06: Nucleated Red Blood Cells % (auto) 0.0, Anion Gap 4L, Glomerular Filtration Rate > 60.0, Calcium Level 9.0 CBC/BMP Laboratory Tests 07/01/20 14:25 07/02/20 06:06 RANDI ARGUELLO MD Jul 02, 2020 09:15
[2020-07-02] MEDS: ACETAMINOPHEN TAB 650MG DOSE (2X325MG) PO PRN ×2 (10:18→20:46)
[2020-07-02 14:00] VITALS: BP 111/60
--- NOTE | 2020-07-02 16:37 | REPVR ---
PROCEDURE INFORMATION: Exam: XR Left Tibia and Fibula Exam date and time: 07/02/2020 9:22 AM Age: 79 years old Clinical indication: Pain; Lower leg; Left; Additional info: ? FX TECHNIQUE: Imaging protocol: XR Left tibia and fibula. Views: 2 views. COMPARISON: 1. CT FEMUR WITH CONTRAST LEFT 07/01/2020 11:00 AM 2. CR - Knee, Ap, Lat LEFT 07/02/2020 9:10:[address] FEMUR WITH CONTRAST LEFT 07/01/2020 11:00:51 AM 4. PT - PET/CT Skull/mid thigh 03/07/2020 4:03:51 PM 5. SR - NM Bone Scan Whole Body 05/12/2020 9:20:44 AM FINDINGS: Bones/joints: 7 mm questionable subtle lucent lesion in the proximal tibial diaphysis 14.2 cm below the level of the medial tibial plateau. A 2nd more lucent and better defined lesion in the distal tibial diaphysis measuring 5 mm is located 10.5 cm above the level of the tibial plafond. 13.9 cm proximal to the articular surface of the tibial plafond and, there is cortical thickening medially along the mid to distal tibial diaphysis with questionable subtle lucency. This could represent an incomplete small stress fracture, but the periosteal reaction appears relatively mature. Spur formation and ossicles at the distal tip of the lateral malleolus. The included ossicles have corticated margins but are incompletely visualized. No acute fracture. Subcortical lucent ganglion cyst in the medial talar dome suggesting a remote osteochondral injury. The knee joint is not included, but is included on knee radiographs also performed today. Soft tissues: There are surgical clips in the medial lower leg. Vasculature: Multifocal atherosclerotic vascular calcifications. Calcifications in the anterior proximal lower leg are most likely phleboliths. IMPRESSION: 1. Questionable small incomplete stress fracture through the medial cortex of the mid to distal tibial diaphysis. However, the periosteal reaction appears relatively mature and this is of indeterminate age. Suggest further evaluation with MR. 2. Small lucent lesions in the tibial diaphysis of uncertain etiology. These could be further addressed on MR of the lower leg. 3. Prior osteochondral injury in the medial talar dome. Electronically signed by: Karly Pena On 07/02/2020 16:36:25 PM
--- NOTE | 2020-07-02 16:46 | REPVR ---
PROCEDURE INFORMATION: Exam: XR Left Knee Exam date and time: 07/02/2020 9:22 AM Age: 79 years old Clinical indication: Pain; Lower leg; Left; Additional info: ? FX TECHNIQUE: Imaging protocol: XR Left knee. Views: 1 or 2 views. COMPARISON: 1. CT FEMUR WITH CONTRAST LEFT 07/01/2020 11:00 AM 2. NM Bone Scan Whole Body 05/12/2020 9:20:44 AM FINDINGS: Bones/joints: There is no acute fracture. No dislocation. There is medial joint space narrowing. 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 The appearance of minimal cortical discontinuity at the medial tibial eminence is likely related to osteophyte formation in comparison with the CT of the femur 07/01/2020 which includes the knee joint. The lucent lesions seen on CT 07/01/2020 in the medial femoral condyle and lateral tibial plateau are not well visualized radiographically. Soft tissues: Calcifications in the anterior subcutaneous fat of the distal thigh and proximal mid lower leg, most likely phleboliths. Vasculature: Atherosclerotic vascular calcifications are noted. IMPRESSION: 1. No acute fracture. 2. Lucent lesions seen on recent CT in the distal femur and proximal tibia are not visualized radiographically. 3. Tricompartmental osteoarthritis. Electronically signed by: Karly Pena On 07/02/2020 16:46:40 PM
[2020-07-02] MEDS: CYCLOBENZAPRINE 10MG TABLET PO SCH (20:46)
[2020-07-02 22:00] VITALS: BP 110/63
[2020-07-03 06:00] VITALS: BP 137/68
[2020-07-03] MEDS: HumaLOG INSULIN (NovoLOG) PER UNIT SC SCH ×2 (07:30→12:17)
[2020-07-03] MEDS ORDERED: MSIR30TA PO (09:47)
[2020-07-03] MEDS ORDERED: ACET1TAB55 PO (09:47)
[2020-07-03] MEDS ORDERED: SENO8.6T10 PO (09:47)
[2020-07-03] MEDS: ENOXAPARIN 40MG/0.4ML SYRINGE (J1650 PER 10MG) SC SCH (09:50)
[2020-07-03] MEDS: LEVEMIR (INSULIN DETEMIR) 1 UNITS/0.01ML SC SCH (09:50)
[2020-07-03] MEDS: CLOTRIMAZOLE 1% TOPICAL CREAM 30GM TOP SCH (09:50)
[2020-07-03] MEDS: LACTOBACILLUS ACIDOPHILUS CAP (BACID) PO SCH (09:51)
[2020-07-03] MEDS: allopurinoL 100 MG TAB PO SCH (09:51)
[2020-07-03] MEDS: ASPIRIN 81 MG ENTERIC TAB PO SCH (09:51)
[2020-07-03] MEDS: FUROSEMIDE 40 MG TAB PO SCH (09:52)
[2020-07-03] MEDS: OMEPRAZOLE 20 MG CAP PO SCH (09:52)
[2020-07-03 09:53] VITALS: BP 137/68
[2020-07-03] MEDS: METOPROLOL TART 50 MG TAB PO SCH (09:53)
[2020-07-03] MEDS: GABAPENTIN 300 MG CAP PO SCH (09:53)
--- NOTE | 2020-07-03 10:25 | DS.PDOC ---
Discharge Summary General Date of Admission Jun 30, 2020 at 18:05 Date of Discharge 07/03/20 Discharge Summary DISCHARGE DIAGNOSES: DISCHARGE MEDICATIONS: see below CONSULTANTS: ORTHO DR. 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 His daughter contacted radiation oncologist, Dr. Jann Kimball, at [facility] who recommends palliative radiation therapy. HOSPITAL COURSE: Pathologic fracture of the left greater trochanter secondary to bone metastasis from primary lung cancer.Ct femur07/01/20: Pathologic fracture involving the left greater trochanter in association with a 4.1 by 2.2 by 3.0 cm lytic lesion. Patient is appropriate for palliative care, possible comfort measures and hospice for pain control. He is currently on oral medications and did not require IV for breakthrough pain. Palliative radiation is planned f by radiation oncologist, Dr. Kimball. Per patient's wishes. monitor for any side effects including constipation, confusion, respiratory distress. Patient has a very poor overall prognosis. We will defer to his medical oncologist to discuss palliative care and comfort measures. Pt passed HSE and may complete his radiation as outpt. Stage III NSCLC of MARU and mediastinum with metastases to hips: Outpatient medical oncologist discussion regarding recommendations for comfort measures only versus palliative care and continued radiation. Activity level was deferred to orthopedic surgery due to increased risk of injury with a pathologic fracture of the left hip. HTN, chronic resumed in home meds Asthma, chronic, no acute exacerbation Gout, chronic CAD, chronic. No acute ischemic complaint DM2 on consistentcarbs diet, insulin sliding scale and hypoglycemic protocol Marginal zone NHL (PDL-1 positive) first diagnosed in 2013 currently undergoing radiation , deferred to outpatient medical oncologist for further treatment. DISCHARGE PHYSICAL EXAMINATION: VITAL SIGNS: Please see below. GENERAL: Walking with physical therapy with a walker, alert, oriented to person, place and time. No conversational dyspnea HEENT: Face is symmetric. Tongue is midline PERRL, EOMI, Oral mucous membranes are moist without lesions. Appears his stated age. No cervical lymphadenopathy NECK: No carotid bruit no JVD No thyromegaly CHEST/LUNGS: Lungs are clear bilaterally without rhonchi, rales, or wheezes. Air entry is equal bilaterally. No adventitious breath sounds HEART: S1, S2 Regular rate and rhythm. No murmurs, rubs, or gallops are appreciated. Distal pulses are 2+. No carotid bruits appreciated. ABDOMEN: Soft, nontender, and nondistended. Bowel sounds are positive. No organomegaly is appreciated. No masses are appreciated. . No abdominal bruit EXTREMITIES: Trace pitting edema and bilateral lower extremities. There is no focal long bone tenderness or deformity. MUSCULOSKELETAL: Limited range of motion on the left secondary to severe pain,ambulating with PT w walker SKIN: The patients skin is warm and dry, without rashes or lesions. PSYCHIATRIC: AAO x 3, normal mood/affect NEUROLOGIC: 5 out of 5 strength bilateral upper extremities right lower extremity 5 out of 5 strength. Gait was not tested. Unable to assess left lower extremity due to severe pain LABORATORY DATA, IMAGING STUDIES, MICROBIOLOGY: Please see below. PROCEDURE INFORMATION: Exam: CT Left Lower Extremity Without Contrast; Thigh Exam date and time: 07/01/2020 11:04 AM Age: 79 years old Clinical indication: Condition or disease; Other: ? Lesions, known FX; Additional info: FX need thin cuts ! ! CT entire femur ? lesions TECHNIQUE: Imaging protocol: CT of the Left lower extremity without contrast was performed. Exam focused on the thigh. Radiation optimization: All CT scans at this facility use at least one of these dose optimization techniques: automated exposure control; mA and/or kV adjustment per patient size (includes targeted exams where dose is matched to clinical indication); or iterative reconstruction. COMPARISON: Bilateral hip radiographs 06/30/20 FINDINGS: Bones/joints: Multifocal lytic lesions in the visualized left lower extremity including the acetabular roof, proximal left femur, and proximal left tibia, consistent with metastases or multiple myeloma. Pathologic fracture involving the left greater trochanter in association with a 4.1 by 2.2 by 3.0 cm lytic lesion. Degenerative change. Soft tissues: Localized subcutaneous edema in the lateral aspect of the left lower leg and knee. Vasculature: Vascular calcifications. Lymph nodes: Subcentimeter lymph nodes. Bowel: Prominent stool. Bladder: Incompletely visualized contrast filled bladder. Reproductive: Punctate prostate calcifications. IMPRESSION: 1. Multifocal lytic lesions in the visualized left acetabular roof, proximal left femur, and proximal left tibia, consistent with metastases or multiple myeloma. 2. Pathologic fracture involving the left greater trochanter in association with a 4.1 by 2.2 by 3.0 cm lytic lesion. 3. Additional findings as described above. PROCEDURE INFORMATION: Exam: XR Bilateral Hips with Pelvis when Performed Exam date and time: 06/30/2020 7:43 PM Age: 79 years old Clinical indication: Hip pain; Bilateral; Additional info: Pain h/o cancer R/O mets TECHNIQUE: Imaging protocol: XR bilateral hips with pelvis when performed. Views: 2 views. COMPARISON: CT ABD PELVIS WITH CONTRAST 12/08/2019 3:49 PM FINDINGS: Bones/joints: Degenerative arthropathy both hip joints. Fracture greater trochanter on the left. Pathologic fracture not excluded. Soft tissues: Unremarkable. IMPRESSION: Fracture greater trochanter on the left. Pathologic fracture not excluded. Electronically signed by: Sergey Bella On 06/30/2020 19:49:54 PM TIME SPENT ON DISCHARGE: 30 MIN Vital Signs/I&Os Vital Signs Date Time Temp Pulse Resp B/P (MAP) Pulse Ox O2 Delivery O2 Flow Rate FiO2 07/03/20 09:53 84 137/68 07/03/20 06:00 98.9 17 94 Room Air I&O- Last 24 Hours up to 6 AM 07/03/20 06:00 Intake Total 1810 ml Balance 1810 ml Laboratory Data Labs 24H Laboratory Tests 2 07/02/20 12:31: Bedside Glucose (Misc Panel) 131H 07/02/20 17:01: Bedside Glucose (Misc Panel) 134H 07/02/20 19:42: Bedside Glucose (Misc Panel) 157H 07/03/20 07:41: Bedside Glucose (Misc Panel) 95 FSBS Laboratory Tests Test 07/02/20 12:31 07/02/20 17:01 07/02/20 19:42 07/03/20 07:41 Range/Units Bedside Glucose (Misc Panel) 131 134 157 95 83-110 MG/DL Discharge Medications Scheduled Allopurinol (Allopurinol) 100 Mg Tab, 200 MG PO DAILY, (Reported) Aspirin (Aspirin EC) 81 Mg Tab, 81 MG PO DAILY, (Reported) Cetirizine HCl (Cetirizine HCl) 10 Mg Tab, 10 MG PO DAILY, (Reported) Cyclobenzaprine HCl (Cyclobenzaprine HCl) 10 Mg Tablet, 10 MG PO QHS, (Reported) Furosemide (Furosemide) 40 Mg Tablet, 40 MG PO DAILY, (Reported) Gabapentin (Neurontin) 600 Mg Tab, 600 MG PO BID, (Reported) Glimepiride (Glimepiride) 4 Mg Tab, 4 MG PO DAILY, (Reported) Insulin Glargine,Hum.rec.anlog (Lantus Solostar) 100 Unit/Ml Inj, 22 UNIT SC QAM, (Reported) Lactobacillus Acidophilus (Probiotic Acidophilus) 1 Cap Cap, 1 CAP PO DAILY, (Reported) Metoprolol Tartrate (Lopressor) 50 Mg Tab, 50 MG PO BID, (Reported) Multivitamins (Thera M Plus Tablet) 1 Tab Tab, 1 TAB PO EVERY OTHER DAY, (Reported) Omeprazole (Omeprazole) 40 Mg Capsule.dr, 40 MG PO DAILY, (Reported) Potassium Chloride (Potassium Chloride) 10 Meq Capsule.er, 10 MEQ PO DAILY, (Reported) Terbinafine HCl (Terbinafine) 30 Gm Cream..g., 1 APLCT TOP BID, (Reported) apply to abdomin Scheduled PRN Acetaminophen (Acetaminophen) 325 Mg Tablet, 650 MG PO Q4HP PRN for PAIN OR FEVER Albuterol Sulfate (Proair Hfa) 108 Mcg/Act Aer, 2 PUFF INH Q4H PRN for SOB/WHEEZING, (Reported) Morphine Sulfate (Morphine Sulfate) 30 Mg Tablet, 15 MG PO Q4HP PRN for SEVERE PAIN (PS 8-10) Sennosides/Docusate Sodium (Senokot-S Tablet) 1 Each Tablet, 1 TAB PO BIDP PRN for CONSTIPATION Allergies Coded Allergies: oxycodone (Verified Adverse Reaction, Severe, MAKES HIM GO CRAZY, 01/26/19) RANDI ARGUELLO MD Jul 03, 2020 10:25
--- NOTE | 2020-07-03 12:57 | MEDONCPDOC ---
Med Onc Office Note.txt Date of Visit Jul 03, 2020 Office Note Visited patient at bedside today. He reports that his left hip pain is well controlled and he is ambulating. No pain elsewhere in the pelvis or right hip. States pain started evening when he was ambulating and heard and felt a 'pop' in the left hip. Presume this was the pathologic fracture of the greater trochanter on the left. Pain has since improved and is largely functional. While I am concerned about the stability of the left hip half-way, I doubt that surgery would be in his best interest at this time. He states an orthopedic Dr. saw him and said as much. I discussed continuing palliative RT to the MARU today which he agreed to. The intent is to lessen mass effect on the left recurrent laryngeal nerve which is being compressed and causing hoarseness. As he has no significant pulmonary side effects at this time (he has a baseline cough and PATRICK) I see no downside for him to complete this course. He has ~2.5 weeks of treatment remaining. I also believe he would benefit from palliative RT to the left hip which ultimately may promote healing and remineralization of the fracture as well as assist with acute pain. He agrees. We will do the planning scan for this after his thoracic RT appointment today. I will give 20 Gy in 5 fractions. Treatment can resume as an outpatient to both sites once he is discharged. Patient states he would be willing to consider additional systemic therapy if the side effects weren't too bad. Dr. Zuleta is aware of the patient's situation and can advise in the outpatient setting as well. CC TO: Primary Care Provider: PCP,Unknown Referring Provider: MOOSE KIMBALL MD Jul 03, 2020 12:56
--- NOTE | 2020-07-05 08:11 | CR ---
DATE OF CONSULTATION: 07/01/2020 CHIEF COMPLAINT: Left hip pain. HISTORY OF PRESENT ILLNESS: Capo Us is an 79-year-old male with a history of lung cancer with known metastases to the pelvis and femoral neck. Patient had an increase in left hip pain. He had an incident where he slid out of his reclining chair and was unable to get up. He was brought to [facility] and then transferred to [facility]. He was found to have a pathologic fracture of the greater trochanter of his left hip on x-rays. Patient is primarily admitted for pain management. He is getting palliative radiation and is scheduled to go on Friday for this. He states he is actually feeling much better today, on the date of consultation, which is 07/01/2020. His hip pain is starting to improve. He has been able to stand to use the restroom. He is potentially going to be moving in with his daughter. PAST MEDICAL HISTORY: 1. Marginal zone non-Hodgkin lymphoma (NHL). 2. Stage III non-small cell lung cancer (NSCLC) with known metastases to the left lower extremity. 3. Hypertension. 4. Asthma. 5. Gout. 6. Coronary artery disease. 7. Type 2 diabetes. PAST SURGICAL HISTORY: 1. Bone marrow biopsy. 2. Left shoulder surgery. 3. Heart bypass. SOCIAL HISTORY: He is a former two pack per day smoker, he quit 30 years ago. He occasionally uses alcohol. Review of systems are reviewed and noted. ALLERGIES: OXYCODONE. HOME MEDICATIONS: - allopurinol - aspirin - cetirizine - cyclobenzaprine - furosemide - Neurontin - glimepiride - insulin - probiotics - Lopressor - multivitamin - omeprazole - potassium chloride - terbinafine PHYSICAL EXAMINATION: General: Well-appearing, alert and oriented, no acute distress. Chest: Regular, nonlabored breathing. Abdomen: Soft, nontender. Musculoskeletal: There is mild pain with palpation along the lateral aspect of the hip. No groin pain. Mild pain with internal and external rotation. He is neurovascularly intact distally in the left lower extremity. No significant pain or swelling about the knee either in the proximal tibia or distal femur. IMAGING: Patients hip x-rays and CT of the femur are reviewed. He does have a displaced greater trochanteric fracture which is pathologic. There are multiple lytic lesions in the left acetabulum, proximal left femur, and proximal left tibia which are consistent with metastases. I also reviewed the left knee and tibia films. The lytic lesions are not as apparent but there are no other obvious fractures seen on these exams. IMPRESSION: Left pathologic fracture to the greater trochanter with multiple metastatic lesions to the left acetabulum, left proximal femur, and left tibia. PLAN: A long discussion was held with the patient regarding options for treatment. The fracture does not appear to pass the intertrochanteric region on his x-ray or CT scan. His pain is improving. At this point, I think this is reasonable to treat nonoperatively and keep a close eye on things. There is a chance the fracture does not heal given it is a pathologic lesion. He does need to start using a walker for support. If he starts to have any increasing groin pain or hip pain he would need an MRI of the left hip to evaluate any further fracture propagation as this is a more sensitive study. However, given that he is doing better at this time, I think it is reasonable to see how things go over the next couple of days and he agrees with this. He does need to be careful again given the many lesions in his acetabulum, femur, and even his proximal tibia. He is at high risk for further fracture, especially with a fall. He should be seen for followup in the next 1-2 weeks in the orthopaedic clinic after discharge. Patient is in agreement with this plan and mainly would like to be here for pain control and avoid surgery if at all possible. At this point, I think that is a reasonable plan. Again, if he starts having increasing pain in the hip or groin, orthopaedics should be notified and at this point we would pursue an MRI of the left hip. KATHERINE
== END 2020-07-03 16:10 | disposition home health service (06) | DRG 543 ==
LOC: M MS5PR 18:05
PROVIDERS: ADMIT General Practice; ATTEND General Practice
DX: M84.552A Pathological fracture in neoplastic disease, left femur, initial encounter for fracture (principal); C88.4 Extranodal marginal zone B-cell lymphoma of mucosa-associated lymphoid tissue [MALT-lymphoma]; C34.12 Malignant neoplasm of upper lobe, left bronchus or lung; C79.51 Secondary malignant neoplasm of bone; C78.1 Secondary malignant neoplasm of mediastinum; Z51.5 Encounter for palliative care; I10 Essential (primary) hypertension; J45.909 Unspecified asthma, uncomplicated; M10.9 Gout, unspecified; E66.9 Obesity, unspecified; Z66 Do not resuscitate; I25.10 Atherosclerotic heart disease of native coronary artery without angina pectoris; E11.9 Type 2 diabetes mellitus without complications; G89.3 Neoplasm related pain (acute) (chronic); Z87.891 Personal history of nicotine dependence; Z95.1 Presence of aortocoronary bypass graft; Z79.82 Long term (current) use of aspirin; Z79.4 Long term (current) use of insulin; Z79.899 Other long term (current) drug therapy; Z88.5 Allergy status to narcotic agent; Z68.33 Body mass index [BMI] 33.0-33.9, adult

== ENCOUNTER → 2020-07-06 09:45 | Outpatient (RCR) | payer MEDICARE ==
[2018-11-27 11:30] VITALS: BP 139/73
[2018-11-27 12:05] LABS: BASO # 0.2 10^3/uL (0.0-0.2); BASO % 1.9 % (0.0-1.0); EOS # 1.5 10^3/uL (0.0-0.50); EOS % 15.9 % (0.0-3.0); HEMATOCRIT 47.4 % (42.0-52.0); HEMOGLOBIN 15.8 g/dl (13.5-17.5); LYMPH # 3.5 10^3/uL (1.5-4.5); LYMPH % 36.5 % (24.0-44.0); MEAN CORPUSCULAR HEMOGLOBIN 31.2 pg (27.0-33.0); MEAN CORPUSCULAR HGB CONC 33.3 g/dl (32.0-36.5); MEAN CORPUSCULAR VOLUME 93.5 fl (80.0-96.0); MONO # 0.9 10^3/uL (0.0-0.8); MONO % 9.8 % (0.0-5.0); NEUTROPHILS # 3.4 10^3/uL (1.8-7.7); NEUTROPHILS % 35.5 % (36.0-66.0); PLATELET COUNT, AUTOMATED 177 10^3/uL (150-450); RED BLOOD COUNT 5.07 10^6/uL (4.30-6.10); WHITE BLOOD COUNT 9.5 10^3/uL (4.0-10.0)
[2018-11-27 13:19] LABS: ALBUMIN 4.4 GM/DL (3.5-5.2); BLOOD UREA NITROGEN 25 MG/DL (6-20); CALCIUM LEVEL 10.2 MG/DL (8.5-10.2); CARBON DIOXIDE LEVEL 29 MEQ/L (23-31); CHLORIDE LEVEL 99 MMOL/L (98-107); CREATININE FOR GFR 1.36 MG/DL (0.90-1.30); GLOMERULAR FILTRATION RATE 53.8 (>42); GLUCOSE, FASTING 200 MG/DL (70-105); POTASSIUM SERUM 4.3 MMOL/L (3.5-5.1); SODIUM LEVEL 138 MMOL/L (136-145); TOTAL PROTEIN 8.3 GM/DL (6.4-8.3)
--- NOTE | 2018-12-01 08:39 | MEDONC ---
MEDICAL ONCOLOGY FOLLOWUP DATE OF SERVICE: 11/27/2018 Capo is seen today by Maia Ibanez NP with Dr. Vangie Holland the supervising physician. DIAGNOSIS: Jesica marginal zone lymphoma diagnosed 2013, based on a left axillary lymph node biopsy November 2013 showing low grade B-cell lymphoproliferative neoplasm. Bone marrow aspiration and biopsy December 2013 showing jesica marginal zone lymphoma involving the bone marrow. PET scan 2012 showing no hypermetabolic uptake in lymph nodes. Capo is followed expectantly. HISTORY OF PRESENT ILLNESS: Capo presents today for a scheduled 6-month followup visit. To briefly review, he was seen most recently by Dr. Ng of this practice on 05/20/2018. To date, Capo has been followed expectantly with no indication for initiation of treatment. At present, he claims to be in his usual state of health. He specifically denies complaints of palpable lymphadenopathy, diminished appetite, unintended weight loss, drenching night sweats, fevers or chills. He also adamantly denies complaints of headache, visual disturbance, dyspnea, persistent cough, new lumps or bumps, skin rashes, new skeletal pain, diminished appetite, unintended weight loss, or extremity edema. PHYSICAL EXAMINATION: Weight is 112 kg, temperature 96.6, pulse 55, respirations 16, BP 139/73, O2 sat 97% at rest on room air. GENERAL EXAM: Reveals a very pleasant older gentleman who is comfortable and in no acute distress. HEENT: No scleral icterus. Oral pharynx, oral mucous membranes normal. Conjunctivae normal. No thyroid enlargement or nodule. No jugular venous distention. Neck supple. Carotid upstrokes 1+, no bruits. Fundi normal bilaterally. RESPIRATORY: Lungs clear bilaterally to auscultation and percussion. No rales, rhonchi, or wheezing. CARDIOVASCULAR: PMI 5th left intercostal space, midline. S1, S2 normal. No S3, S4 or murmurs. Regular rhythm. Femoral, dorsalis pedis pulses 2+ bilaterally. LYMPHATICS: No palpable lymphadenopathy. ABDOMEN: Soft, nontender. Bowel sounds normal. No tenderness, guarding, or rebound. No palpable masses or hepatosplenomegaly. MUSCULOSKELETAL: No focal skeletal tenderness to percussion. No joint swelling, warmth, tenderness, or erythema. SKIN: No rash, ecchymosis, or petechiae. Normal turgor. EXTREMITIES: No edema, clubbing, cyanosis. No thigh or calf tenderness. Normal range of motion. LABORATORY DATA: WBC 9.5, ANC 3.4, RBC 5.07, H/H 15.8/47.4 and platelets 177. Chemistries are unremarkable with the exception of a minimally elevated creatinine of 1.36 and nonfasting glucose of 200. LDH is within normal parameters. ASSESSMENT/PLAN: Capo is a very pleasant 78-year-old male who remains completely asymptomatic (no constitutional B symptoms) attributable to marginal zone lymphoma at this time. ECOG performance status is 0. The patient's CBC today is within normal parameters. Chemistries are also unremarkable with the exception of a chronically elevated nonfasting glucose and a minimally elevated creatinine. At this time, there is no indication for any additional diagnostic imaging or therapeutic intervention. We will continue to follow Capo carefully and he will return for follow-up visit in 6 months with labs, certainly sooner if any new symptoms, questions or problems. Reviewed by Maia Ibanez NP 12/01/2018 12:45 P Edited and Electronically Signed by Vangie Holland MD 12/16/2018 08:03 P DD: Maia Ibanez NP 11/30/2018 06:56 A DT: [email or web address] 12/01/2018 08:25 A CC: Moiz Mejia MD
[2019-06-01 10:30] VITALS: BP 124/66
[2019-06-01 10:38] LABS: BASO # 0.2 10^3/uL (0.0-0.2); EOS # 1.4 10^3/uL (0.0-0.5); EOS % 16.3 % (0.0-3.0); HEMATOCRIT 43.6 % (42.0-52.0); HEMOGLOBIN 15.1 g/dl (13.5-17.5); LYMPH # 3.4 10^3/uL (1.5-5.0); LYMPH % 38.4 % (24.0-44.0); MEAN CORPUSCULAR HEMOGLOBIN 32.3 pg (27.0-33.0); MEAN CORPUSCULAR HGB CONC 34.6 g/dl (32.0-36.5); MEAN CORPUSCULAR VOLUME 93.2 fl (80.0-96.0); MONO # 0.9 10^3/uL (0.0-0.8); MONO % 10.3 % (0.0-5.0); NEUTROPHILS # 2.9 10^3/uL (1.5-8.5); NEUTROPHILS % 32.4 % (36.0-66.0); PLATELET COUNT, AUTOMATED 161 10^3/uL (150-450); RED BLOOD COUNT 4.68 10^6/uL (4.30-6.10); WHITE BLOOD COUNT 8.9 10^3/uL (4.0-10.0)
[2019-06-01 11:07] LABS: ALBUMIN 3.8 GM/DL (3.2-5.2); BILIRUBIN,TOTAL 0.6 MG/DL (0.2-1.0); CALCIUM LEVEL 9.2 MG/DL (8.8-10.2); CREATININE FOR GFR 1.37 MG/DL (0.70-1.30); GLOMERULAR FILTRATION RATE 53.4 (>42); POTASSIUM SERUM 4.7 MEQ/L (3.5-5.1)
--- NOTE | 2019-06-02 12:28 | MEDONC ---
HEMATOLOGY/ONCOLOGY PROGRESS NOTE DATE OF SERVICE: 06/01/2019 REASON FOR VISIT: This is a very pleasant 78-year-old gentleman who is here today for routine followup of normal marginal zone B-cell non-Hodgkin's lymphoma on active surveillance. Past medical history goes back to presentation with left axillary lymph nodes back in December 2013. The patient underwent a bone marrow biopsy as part of his staging and was consistent with a marginal zone lymphoma. The patient had not presented with any B symptoms and had stable hemoglobin/hematocrit and platelets. As a result, he had continued to be monitored and no treatment had been given. Please note that the patient had a PET scan in 2012 showing no hypermetabolic uptake in the lymph nodes. PAST MEDICAL HISTORY: Includes non-insulin dependent diabetes and hypertension. ALLERGIES: - OXYCODONE MEDICATIONS: Include albuterol 2 puffs q.4-6 hours, allopurinol 100 mg p.o. daily, aspirin 81 mg p.o. daily, cetirizine 10 mg p.o. daily, gabapentin 600 mg p.o. b.i.d., glimepiride 4 mg p.o. b.i.d., Lantus Insulin 35 units subcu q. P.m., lactobacillus acidophilus probiotic 1 capsule p.o. daily, Lopressor 50 mg p.o. b.i.d. REVIEW OF SYSTEMS: 1. CONSTITUTIONAL: Tiredness and fatigue at the end of the day and some minor arthralgias. No weight loss, fever chills or night sweats. 2. EYES: No blurring of vision, no visual loss partial or complete, no tearing, redness. 3. EAR, NOSE, THROAT and MOUTH: No hearing loss, sinusitis, sore throat, dental problems, tooth pain. Denies dysphagia, mouth sores, bleeding. 4. RESPIRATORY: Denies asthma, wheezing, cough, sputum production. 5. GI: No nausea, vomiting, diarrhea or constipation, change in color or caliber of stool. No hemorrhoids. No rectal bleeding. No hematemesis, heartburn. 6. : No hematuria, dysuria, frequency, stones. 7. CV: No chest pain, palpitations, murmur, fainting, lightheadedness or chest pressure. 8. ENDOCRINE: No cold or heat intolerance, diabetes, polyuria, polydipsia. 9. MUSCULOSKELETAL: No new joint stiffness, joint swelling, myalgias, gout. 10. ALLERGY/IMMUNOLOGY: No new allergies to food, medications. 11. HEMATOLOGICAL: Denies bruising, bleeding, lymph node enlargement. 12. PSYCHIATRIC: Denies depression, agitation, memory loss, panic attacks. 13. SKIN: Denies rashes, moles, dryness, pigment changes. 14. NEUROLOGIC: Denies dizziness, syncope, seizures, vertigo, weakness, tremor. PHYSICAL EXAMINATION: CONSTITUTIONAL: ECOG status 1/4. Temperature 96.5. Pulse 64. Respiratory rate 18. BP 124/66. Pulse oximetry 96. HEENT: NC. AT, PERRL, EOMI, sclera is white, nonicteric, nares intact, oropharynx clear, no thrush, no buccal lesions, tongue without lesions, facial area without abnormalities. NECK: Trachea midline. No thyromegaly. No masses. CHEST: Normal AP diameter. No truncal lesions noted. No rales, rhonchi or wheezes noted. Clear to auscultation and percussion. Some truncal obesity. Spleen is difficult to ascertain due to large truncal obesity. CV: S1 and S2 appreciated, no murmurs, gallops or rubs. Rhythm RR. ABDOMEN: Soft, nontender. No HSM. No ascites. No guarding or rebound. : No CVA tenderness. Normal external genitalia, normal secondary sexual characteristics. EXTREMITIES: Upper extremities: No edema, swelling, abnormalities. Lower extremities show no cyanosis, clubbing or edema. No varicosities. Good capillary filling noted on right and left lower extremity. NEUROLOGICAL: Cranial nerves II- XII intact. No focal deficits, motor and sensory intact, no tremor. VASCULAR: Pulses equal and present in upper extremities and lower extremities. Good capillary filling in lower extremities. No carotid bruits. No abdominal bruits. MUSCULOSKELETAL: No point tenderness. Normal spinal alignment. Range of motion joints, no limitation. SKIN: No lesions, rashes noted. PSYCH: No agitation, normal behavior. LABORATORY DATA: His WBC count is 8.9, hemoglobin is 15.1 over 43.6, RDW is 13.8, platelets of 161, neutrophils of 32.4, lymphocytes of 38.4, basophils of 2. Serum chemistries show a sodium of 137, potassium 4.7, chloride 103, CO2 of 29, BUN 21, creatinine is 1.37, GFR is 53.4, total bilirubin 0.6, AST 25, ALT 28, alkaline phosphatase of 56. 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 PLAN: To continue observation only. Monitor the patient every 6 months. Get a CBC, CMP, LDH. The patient has been advised that if he has fever, night sweats or weight loss to please contact us sooner. Electronically Signed by Elsa Ferrera MD 06/03/2019 07:51 A DD: Elsa Ferrera MD 06/01/2019 05:30 P DT: [email or web address] 06/02/2019 12:09 P CC: Moiz Mjeia MD
[2019-11-30 10:36] LABS: BASO # 0.2 10^3/uL (0.0-0.2); BASO % 1.9 % (0.0-1.0); EOS # 1.5 10^3/uL (0.0-0.5); HEMATOCRIT 41.8 % (42.0-52.0); HEMOGLOBIN 14.2 g/dl (13.5-17.5); LYMPH % 36.7 % (24.0-44.0); MEAN CORPUSCULAR VOLUME 94.1 fl (80.0-96.0); MONO # 0.8 10^3/uL (0.0-0.8); NEUTROPHILS # 2.7 10^3/uL (1.5-8.5); NEUTROPHILS % 32.8 % (36.0-66.0); PLATELET COUNT, AUTOMATED 165 10^3/uL (150-450); RED BLOOD COUNT 4.44 10^6/uL (4.30-6.10); WHITE BLOOD COUNT 8.2 10^3/uL (4.0-10.0)
[2019-11-30 10:53] VITALS: BP 133/64
[2019-11-30 11:01] LABS: ALBUMIN 3.6 GM/DL (3.2-5.2); BILIRUBIN,TOTAL 0.5 MG/DL (0.2-1.0); CALCIUM LEVEL 9.5 MG/DL (8.8-10.2); CREATININE FOR GFR 1.27 MG/DL (0.70-1.30); GLOMERULAR FILTRATION RATE 58.1 (>35); POTASSIUM SERUM 4.4 MEQ/L (3.5-5.1); TOTAL PROTEIN 8.2 GM/DL (6.4-8.2)
--- NOTE | 2019-12-03 09:11 | MEDONC ---
DATE OF SERVICE: 11/30/2019 REASON FOR FOLLOWUP: Non-Hodgkin lymphoma. DIAGNOSIS AND TREATMENT HISTORY: Per prior notes. (Jesica likely) Marginal zone NHL per BM bx- see work-up below. - 2013 - presented with left axillary LAD. - 12/15/2013 - Left axillary LN core bx flow cytometry - atypical lymphoid proliferation w/ predominantly small lymphocytes worrisome for low grade B-cell lymphoproliferative neoplasm. Flow cytometry - small clonal B-cell population, however, further classification not possible due to limited sample. 01/07/2014, BM Bx - Marginal zone lymphoma. As of today's dictation remainder of the studies, flow cytometry, cytogenetics and FISH report requested. Specimen was sent to [facility]. Per prior notes, he had no B symptoms, had stable hemoglobin/hematocrit and platelets. 2012 PET scan - no hypermetabolic uptake in LN. Was followed expectantly with active surveillance. INTERVAL HISTORY: Met patient for the first time today. States he feels well. Denies any new lymph node enlargement, no constitutional symptoms - see ROS. Has good appetite and sleep. Denies any weight loss. No fatigue. No pain or bleeding at any sites. Has longstanding stable tingling and numbness in his feet which he attributes to his diabetes. He denies any difficulty with swallowing. No pain on swallowing. No bowel or bladder issues. No gastrointestinal or cardiopulmonary complaints - see ROS. Is independent with ADLs and IDLs. Except for mild fatigue at the end of the day, he denies any other complaints. No debilitating fatigue. No loss of function. Reports no other complaints. REVIEW OF SYSTEMS: CONSTITUTIONAL: No fevers, no chills, no night sweats, no malaise, no weight loss. CARDIOPULMONARY: No chest pain, no SOB, no palpitations, no dizziness. No cough. No hemoptysis. GASTROINTESTINAL: No pain, no nausea, no vomiting, no constipation, no diarrhea. No hematemesis, no melena, no hematochezia. GENITOURINARY: No dysuria, no hematuria, no incontinence, no frequency, no urgency. MUSCULOSKELETAL: No bony, no muscle, no joint aches. STAFF SCIENTIST: No tingling, no weakness, no numbness, no headaches, no dizziness, no seizures, no speech, no visual disturbances. All other systems are negative unless otherwise specified in HPI. PAST MEDICAL HISTORY: Diabetes with neuropathy. Hypertension. Gout. Asthma. Left arm fracture status post fall - treated conservatively per patient. MEDICATIONS: Reviewed in EMR and reconciled. ALLERGIES/DRUG SENSITIVITIES: OXYCODONE - "went crazy, had hallucinations". VITAL SIGNS: Reviewed in EMR - stable. PHYSICAL EXAM: HEENT: Oral mucosa - pink and moist, no conjunctival pallor, sclera anicteric bilaterally. LYMPHATICS: Corroborated by patient- No cervical, supraclavicular, axillary, or inguinal LAD. LUNGS: Clear to auscultation bilaterally, resonant to percussion bilaterally. HEART: Regular rhythm, no murmurs, no S3/S4, no rubs. ABDOMEN: Soft, nontender, bowel sounds normoactive, no hepatosplenomegaly. EXTREMITIES: No edema bilaterally. Calves nontender bilaterally. SKIN/NAILS: No nail changes. No petechiae/ecchymosis or other skin changes. MUSCULOSKELETAL: Spine nontender to palpation. INVESTIGATIONS: Reviewed in the EMR. ASSESSMENT/PLAN: 1. (Jesica likely) Marginal zone NHL per BM bx 2013 per prior notes. Reviewed NCCN guidelines with the patient. Though his original axillary LB bx was not conclusive for a subtype of lymphoma, his BM bx was reported to have involvement with marginal zone lymphoma. With marrow involvement, he had at least stage IV disease. Indications for treatment include B/constitutional symptoms, obstructive lymphadenopathy, cytopenias, bulky disease, steady rapid progression or transformation to a higher grade of lymphoma, none of which the patient has at this time. Recommendation is to observe with H and P and labs every 3-6 months for 5 years then annually with surveillance imaging up to 2 years, no more than every 6 months. CBC today reveals no cytopenias, LFTs unremarkable. He does not recall an EGD evaluation to evaluate for GI involvement- he is currently asymptomatic and has been since 2014 per his history. Advised to notify us for any new GI complaints including but not limited to pain, nausea, vomiting, evidence of GI bleeding - all explained in lay terms. Patient's last imaging was in 2013. He is in his 6th year of followup per NCCN guidelines > 2 years of followup - CT scans to be done no more than annually. We discussed and the patient was agreeable to obtaining an updated CT CA/P. Clinically, however he is stable and there are no indications for treatment at this time but his CT scans will form a new baseline. Advised patient to call us 3-5 days after the completion of his scans to review results by phone. FOLLOW UP: 6 months, sooner p.r.n. All of the above was relayed to the patient who was given an opportunity to ask questions that were answered to satisfaction. The patient voiced an understanding and agreed to proceed. Electronically Signed by Bud Camacho MD 12/14/2019 08:37 A DD: Bud Camacho MD 11/30/2019 07:12 P DT: [email or web address] 12/03/2019 08:12 A CC: Moiz Mejia MD
[2019-12-14 08:09] VITALS: BP 127/67
--- NOTE | 2019-12-15 07:04 | MEDONC ---
DATE OF SERVICE: 12/14/2019 REASON FOR FOLLOWUP: Non-Hodgkin lymphoma. DIAGNOSIS AND TREATMENT HISTORY: Per prior notes. (Jesica likely) Marginal zone NHL per BM bx- see work-up below. - 2013 - presented with left axillary LAD. - 12/15/2013 - Left axillary LN core bx flow cytometry - atypical lymphoid proliferation w/ predominantly small lymphocytes worrisome for low grade B-cell lymphoproliferative neoplasm. Flow cytometry - small clonal B-cell population, however, further classification not possible due to limited sample. 01/07/2014, BM Bx - Marginal zone lymphoma. As of today's dictation remainder of the studies, flow cytometry, cytogenetics and FISH report requested. Specimen was sent to [facility]. Per prior notes, he had no B symptoms, had stable hemoglobin/hematocrit and platelets. 2013 PET scan - no hypermetabolic uptake in LN. Was followed expectantly with active surveillance. INTERVAL HISTORY: Patient opted for followup with his CT scans. Denies any new lymph node enlargement, no constitutional symptoms - see ROS. Has good appetite and sleep, denies any weight loss. No pain or bleeding at any site. No gastrointestinal or cardiopulmonary complaints - see ROS. Except for mild fatigue at the end of the day, denies any other complaints. Independent of his ADLs and IDLs. REVIEW OF SYSTEMS: CONSTITUTIONAL: No fevers, no chills, no night sweats, no malaise, no weight loss. CARDIOPULMONARY: No chest pain, no SOB, no palpitations, no dizziness. No cough. No hemoptysis. GASTROINTESTINAL: No pain, no nausea, no vomiting, no constipation, no diarrhea. No hematemesis, no melena, no hematochezia. GENITOURINARY: No dysuria, no hematuria, no incontinence, no frequency, no urgency. MUSCULOSKELETAL: No bony, no muscle, no joint aches. PRODUCT APPLICATIONS SCIENTIST: Longstanding stable tingling and numbness in his feet attributed to diabetes, no loss of function. No weakness, no headaches, no dizziness, no seizures, no speech, no visual disturbances. All other systems are negative unless otherwise specified in HPI. PAST MEDICAL HISTORY: Diabetes with neuropathy. Hypertension. Gout. Asthma. Left arm fracture status post fall - treated conservatively per patient. MEDICATIONS: Reviewed in EMR and reconciled. ALLERGIES/DRUG SENSITIVITIES: OXYCODONE - "went crazy, had hallucinations". VITAL SIGNS: Reviewed in EMR - stable. PHYSICAL EXAM: HEENT: Oral mucosa - pink and moist, no conjunctival pallor, sclera anicteric bilaterally. LYMPHATICS: 11/30/19 - corroborated by patient- No cervical, supraclavicular, axillary, or inguinal LAD. 12/14/19 reexamined b/l axilla - no LAD, corroborated by patient. LUNGS: Clear to auscultation bilaterally, resonant to percussion bilaterally. HEART: Regular rhythm, no murmurs, no S3/S4, no rubs. ABDOMEN: Soft, nontender, bowel sounds normoactive, no hepatosplenomegaly. EXTREMITIES: No edema bilaterally. Calves nontender bilaterally. SKIN/NAILS: Not reexamined today - No nail changes. No petechiae/ecchymosis or other skin changes. MUSCULOSKELETAL: Not reexamined today - Spine nontender to palpation. INVESTIGATIONS: Reviewed in the EMR. ASSESSMENT/PLAN: 1. (Jesica likely) Marginal zone NHL per BM BX 2014 per prior notes. Reviewed NCCN guidelines with the patient. Though his original axillary LB bx was not conclusive for a subtype of lymphoma, his BM bx was reported to have involvement with marginal zone lymphoma. With marrow involvement, he had at least stage IV disease. Indications for treatment include B/constitutional symptoms, obstructive lymphadenopathy, cytopenias, bulky disease, steady rapid progression or transformation to a higher grade of lymphoma, none of which the patient has at this time. Recommendation is to observe with H and P and labs every 3-6 months for 5 years then annually with surveillance imaging up to 2 years, no more than every 6 months. 12/16 CBC - no cytopenias, LFTs unremarkable. Does not recall a prior EGD evaluation to evaluate for GI involvement. 12/08/19 CT CAP - enlarged axillary nodes b/l - 12 mm (stable compared to 2014 left axilla US, no prior right axillary imaging), borderline enlarged mediastinal LN measuring up to 9 mm, no other mediastinal node enlargement, borderline enlarged RT hilar LN measuring 8 mm, no left hilar LN enlargement. No lung masses or nodules. Wall thickening of gastric antrum- nonspecific, artifact versus inflammatory process versus infiltrative process such as lymphoma, no LAD, no ascites, no other masses or nodules. Based on the above findings, discussed with the patient and he was agreeable to a GI referral for further evaluation. FOLLOW UP: 3-4 weeks with GI workup. All of the above was relayed to the patient who was given an opportunity to ask questions that were answered to satisfaction. The patient voiced an understanding and agreed to proceed. I spent 15 minutes during this visit seeing the patient face to face, reviewing records, more than 50% of the time was spent in face to face counseling and discussion with the patient. Electronically Signed by Bud Camacho MD 12/15/2019 07:48 P DD: Bud Camacho MD 12/14/2019 08:26 A DT: [email or web address] 12/15/2019 06:29 A CC: Moiz Mejia MD
--- NOTE | 2020-02-17 17:08 | MEDONCENPD ---
Date/Time of Encounter Date of Encounter: February 17, 2020 Encounter I was called up about this patient by pulmonology Dr. Mary Grace Lovell who can be reached at [phone]. This is a patient with a history of marginal zone non- Hodgkin's lymphoma per bone marrow biopsy and aspirate who is on surveillance. He was last seen by Dr. Camacho on 12/14/19. Apparently, he had a CT scan of the chest in November, which showed a 2 x 2.[address] scan of the chest was repeated in January which showed that the lung mass appeared to be approximately the same size perhaps a few millimeters larger. However the patient had adenopathy in the chest that appeared to be increasing in size. He also has axillary lymphadenopathy. Pulmonology has ordered a PET CT scan today to further evaluate lymphadenopathy and lung mass. It is unknown whether lymphadenopathy is related to marginal zone lymphoma or lung mass. The patient also has EGD that is scheduled for next week to further evaluate gastric antral thickening. With regards to possible treatment for marginal zone lymphoma, I did recommend further workup including PET CT scan needed to be performed. If the patient appears to have a localized lung nodule that is cancers, he may benefit from SB RT. The patient will require follow-up with [facility] for cancer care. This will be arranged in 2-3 weeks' time. PRASANNA GAMBINO MD February 17, 2020 17:08
[2020-03-09 10:38] LABS: BASO # 0.1 10^3/uL (0.0-0.2); BASO % 1.5 % (0.0-1.0); EOS # 1.1 10^3/uL (0.0-0.5); EOS % 14.4 % (0.0-3.0); HEMATOCRIT 40.9 % (42.0-52.0); HEMOGLOBIN 13.7 g/dl (13.5-17.5); LYMPH # 2.7 10^3/uL (1.5-5.0); LYMPH % 34.7 % (24.0-44.0); MEAN CORPUSCULAR HEMOGLOBIN 31.1 pg (27.0-33.0); MEAN CORPUSCULAR HGB CONC 33.5 g/dl (32.0-36.5); MONO # 0.9 10^3/uL (0.0-0.8); MONO % 11.2 % (0.0-5.0); NEUTROPHILS # 2.9 10^3/uL (1.5-8.5); NEUTROPHILS % 37.8 % (36.0-66.0); PLATELET COUNT, AUTOMATED 174 10^3/uL (150-450); WHITE BLOOD COUNT 7.8 10^3/uL (4.0-10.0)
[2020-03-09 10:40] VITALS: BP 132/66
[2020-03-09 11:07] LABS: ALBUMIN 3.4 GM/DL (3.2-5.2); BILIRUBIN,TOTAL 0.5 MG/DL (0.2-1.0); CREATININE FOR GFR 1.3 MG/DL (0.70-1.30); GLOMERULAR FILTRATION RATE 56.5 (>35); POTASSIUM SERUM 4.4 MEQ/L (3.5-5.1); TOTAL PROTEIN 8.4 GM/DL (6.4-8.2)
--- NOTE | 2020-03-09 18:34 | MEDONCPDOC ---
Medical Oncology Office Note Date of Service: Mar 09, 2020 Diagnosis/Treatment History DIAGNOSIS AND TREATMENT HISTORY: Per prior notes. (Jesica likely) Marginal zone NHL per BM bx- see work-up below. - 2013 - presented with left axillary LAD. - 12/15/2013 - Left axillary LN core bx flow cytometry - atypical lymphoid proliferation w/ predominantly small lymphocytes worrisome for low grade B-cell lymphoproliferative neoplasm. Flow cytometry - small clonal B-cell population, however, further classification not possible due to limited sample. 01/07/2014, BM Bx - Marginal zone lymphoma. As of today's dictation remainder of the studies, flow cytometry, cytogenetics and FISH report requested. Specimen was sent to [facility]. Per prior notes, he had no B symptoms, had stable hemoglobin/hematocrit and platelets. 2013 PET scan - no hypermetabolic uptake in LN. Was followed expectantly with active surveillance. Interval History The patient has new findings. He had a CAT scan of his chest and then a PET scan . He has a mass in his left upper lung with activity in his mediastinum . It looks like a carcinoma. Could be transformation to an aggressive lymphoma. I told the patient ' he needs a biopsy." Allergies Coded Allergies: oxycodone (Verified Adverse Reaction, Severe, MAKES HIM GO CRAZY, 01/26/19) Home Medications Reported Medications Omeprazole (Omeprazole) 40 Mg Capsule.dr, 40 MG PO DAILY 03/09/20 Cyclobenzaprine HCl (Cyclobenzaprine HCl) 10 Mg Tablet, 10 MG PO PRN for PAIN 02/15/20 Potassium Chloride (Potassium Chloride) 10 Meq Capsule.er, 10 MEQ PO DAILY 02/15/20 Furosemide (Furosemide) 40 Mg Tablet, 40 MG PO DAILY 11/30/19 Insulin Glargine,Hum.rec.anlog (Lantus Solostar) 100 Unit/Ml Inj, 35 UNIT SC QPM for 30 Days, #15 ML 11/27/18 Glimepiride (Glimepiride) 4 Mg Tab, 4 MG PO BID for 30 Days, #60 TAB 11/27/18 Metoprolol Tartrate (Lopressor) 50 Mg Tab, 50 MG PO BID for 30 Days, #60 TAB 11/27/18 Multivitamins (Thera M Plus Tablet) 1 Tab Tab, 1 TAB PO QAM for 30 Days, #30 TAB 11/27/18 Cetirizine HCl (Cetirizine HCl) 10 Mg Tab, 10 MG PO DAILY for allergy symptoms for 30 Days, #30 TAB 11/27/18 Albuterol Sulfate (Proair Hfa) 108 Mcg/Act Aer, 2 PUFF INH Q4-6HP PRN for wheezing for 21 Days, #1 INHALER 11/27/18 Lactobacillus Acidophilus (Probiotic Acidophilus) 1 Cap Cap, 1 CAP PO DAILY for 30 Days, #30 CAP 11/27/18 Aspirin (Aspirin EC) 81 Mg Tab, 81 MG PO DAILY for pain for 30 Days, #30 TAB 11/27/18 Allopurinol (Allopurinol) 100 Mg Tab, 200 MG PO DAILY for 30 Days, #30 TAB 11/27/18 Gabapentin (Neurontin) 600 Mg Tab, 600 MG PO BID for 30 Days, #90 TAB 11/27/18 Past Medical History Past Medical History: CAD Diabetes Hypertension Adsthma Gout Past Surgical History: left shoulder surgery Bypass surgery heart Review of Systems General: Reports: Normal Appetite; Denies: Chills, Fatigue, Malaise Constitutional: Denies: Chills, Fatigue, Weight Loss Eyes: Denies: Vision change HEENT: Denies: Head Aches, Dysphagia, Sore Throat, Epistaxis Skin: Denies: Rash, Lesions, Jaundice, Bruising Pulmonary: Denies: Dyspnea, Cough Cardiovascular: Denies: Chest Pain, Palpitations, Orthopnea, Edema Gastrointestinal: Denies: Nausea, Vomiting, Diarrhea Genitourinary: Denies: Dysuria, Frequency, Incontinence Hematologic: Denies: Bruising, Petecchia Neurological: Reports: Weakness, Numbness; Denies: Change in Speech Psych: Reports: Mood Normal Physical Examination General Exam: Positive: Alert, No Acute Distress Eye Exam: Positive: PERRLA, Conjunctiva & lids normal; Negative: Sclera icteric ENT EXAM: Positive: Atraumatic, Mucous membr. moist/pink Neck Exam: Reports: Supple; Denies: JVD, Thyromegaly, Lymphadenopathy Chest Exam: Positive: Clear to auscultation, Normal air movement Heart Exam: Positive: Rate Normal, Other (midline chest scar ) Abdomen Exam: Positive: Normal bowel sounds; Negative: Tenderness, Hepatospenomegaly, Mass Extremity Exam: Negative: Clubbing, Cyanosis, Edema Skin Exam: Positive: Nl turgor and temperature; Negative: Rash, Breakdown, Lesion Neuro Exam: Positive: Normal Speech, Normal Tone Psych Exam: Positive: Mental status NL Ht / Wt Ht / Wt Height:5 Feet 7 Inches Weight: 110.800 Kg Vital Signs Vital Signs Date Time Temp Pulse Resp B/P (MAP) Pulse Ox O2 Delivery O2 Flow Rate FiO2 03/09/20 10:40 97.7 61 18 132/66 (88) 93 Room Air Laboratory Data Laboratory Tests Test 03/09/20 10:29 Laboratory Tests 03/09/20 10:29 Assessment/Plan 79 year old man with lymphoma Now with a right lung mass suspicious for lung cancer. The patient needs a biopsy. Plan: The patient is not agreeing to a biopsy at this time. I asked him to see and at least discuss biopsy with the human resources generalist. CC TO: Primary Care Provider: Moiz Mejia MD Referring Provider: JASSI BLOUNT MD Mar 09, 2020 11:00
[2020-03-24 14:19] VITALS: BP 126/70
--- NOTE | 2020-03-24 15:26 | MEDONCPDOC ---
Medical Oncology Office Note Date of Service: Mar 24, 2020 Diagnosis/Treatment History DIAGNOSIS AND TREATMENT HISTORY: Per prior notes. (Jesica likely) Marginal zone NHL per BM bx- see work-up below. - 2013 - presented with left axillary LAD. - 12/15/2013 - Left axillary LN core bx flow cytometry - atypical lymphoid proliferation w/ predominantly small lymphocytes worrisome for low grade B-cell lymphoproliferative neoplasm. Flow cytometry - small clonal B-cell population, however, further classification not possible due to limited sample. 01/07/2014, BM Bx - Marginal zone lymphoma. As of today's dictation remainder of the studies, flow cytometry, cytogenetics and FISH report requested. Specimen was sent to [facility]. Per prior notes, he had no B symptoms, had stable hemoglobin/hematocrit and platelets. 2013 PET scan - no hypermetabolic uptake in LN. Was followed expectantly with active surveillance. Interval History The patient has new findings. He had a CAT scan of his chest and then a PET scan . He has a mass in his left upper lung with activity in his mediastinum . It looks like a carcinoma. Could be transformation to an aggressive lymphoma. The patient has an appointment to be seen in [place] for a second opinion. We discussed with patient the need to get tissue diagnosis before we can disc uss treatment options. Allergies Coded Allergies: oxycodone (Verified Adverse Reaction, Severe, MAKES HIM GO CRAZY, 01/26/19) Home Medications Reported Medications Omeprazole (Omeprazole) 40 Mg Capsule.dr, 40 MG PO DAILY 03/09/20 Cyclobenzaprine HCl (Cyclobenzaprine HCl) 10 Mg Tablet, 10 MG PO PRN for PAIN 02/15/20 Potassium Chloride (Potassium Chloride) 10 Meq Capsule.er, 10 MEQ PO DAILY 02/15/20 Furosemide (Furosemide) 40 Mg Tablet, 40 MG PO DAILY 11/30/19 Insulin Glargine,Hum.rec.anlog (Lantus Solostar) 100 Unit/Ml Inj, 35 UNIT SC QPM for 30 Days, #15 ML 11/27/18 Glimepiride (Glimepiride) 4 Mg Tab, 4 MG PO BID for 30 Days, #60 TAB 11/27/18 Metoprolol Tartrate (Lopressor) 50 Mg Tab, 50 MG PO BID for 30 Days, #60 TAB 11/27/18 Multivitamins (Thera M Plus Tablet) 1 Tab Tab, 1 TAB PO QAM for 30 Days, #30 TAB 11/27/18 Cetirizine HCl (Cetirizine HCl) 10 Mg Tab, 10 MG PO DAILY for allergy symptoms for 30 Days, #30 TAB 11/27/18 Albuterol Sulfate (Proair Hfa) 108 Mcg/Act Aer, 2 PUFF INH Q4-6HP PRN for wheezing for 21 Days, #1 INHALER 11/27/18 Lactobacillus Acidophilus (Probiotic Acidophilus) 1 Cap Cap, 1 CAP PO DAILY for 30 Days, #30 CAP 11/27/18 Aspirin (Aspirin EC) 81 Mg Tab, 81 MG PO DAILY for pain for 30 Days, #30 TAB 11/27/18 Allopurinol (Allopurinol) 100 Mg Tab, 200 MG PO DAILY for 30 Days, #30 TAB 11/27/18 Gabapentin (Neurontin) 600 Mg Tab, 600 MG PO BID for 30 Days, #90 TAB 11/27/18 Past Medical History Past Medical History: CAD Diabetes Hypertension Asthma Gout Past Surgical History: left shoulder surgery Bypass surgery heart Review of Systems General: Reports: Normal Appetite; Denies: Chills, Fatigue, Malaise Constitutional: Denies: Chills, Fatigue, Weight Loss Eyes: Denies: Vision change HEENT: Denies: Head Aches, Dysphagia, Sore Throat, Epistaxis Skin: Denies: Rash, Lesions, Jaundice, Bruising Pulmonary: Denies: Dyspnea, Cough Cardiovascular: Denies: Chest Pain, Palpitations, Orthopnea, Edema Breast: Denies: New Breast Lumps / Masses, Breast Skin Changes, Breast Pain or Tenderness Gastrointestinal: Denies: Nausea, Vomiting, Diarrhea Genitourinary: Denies: Dysuria, Frequency, Incontinence Hematologic: Denies: Bruising, Petecchia Neurological: Reports: Weakness, Numbness; Denies: Change in Speech Psych: Reports: Mood Normal Physical Examination General Exam: Positive: Alert, No Acute Distress Eye Exam: Positive: PERRLA, Conjunctiva & lids normal; Negative: Sclera icteric ENT EXAM: Positive: Atraumatic, Mucous membr. moist/pink Neck Exam: Reports: Supple; Denies: JVD, Thyromegaly, Lymphadenopathy Chest Exam: Positive: Clear to auscultation, Normal air movement Heart Exam: Positive: Rate Normal Breast Exam: Positive: Symmetric Bilaterally; Negative: Lumps or Masses, Skin Changes Abdomen Exam: Positive: Normal bowel sounds; Negative: Tenderness, Hepatospenomegaly, Mass Extremity Exam: Negative: Clubbing, Cyanosis, Edema Skin Exam: Positive: Nl turgor and temperature; Negative: Rash, Breakdown, Lesion Neuro Exam: Positive: Normal Speech, Normal Tone Psych Exam: Positive: Mental status NL Ht / Wt Ht / Wt Height:5 Feet 7 Inches Weight: 110.500 Kg Vital Signs Vital Signs Date Time Temp Pulse Resp B/P (MAP) Pulse Ox O2 Delivery O2 Flow Rate FiO2 03/24/20 14:19 97.6 66 18 126/70 (88) 95 Room Air Assessment/Plan 79 year old man with lymphoma Now with a left lung mass suspicious for lung cancer. left suprahilar adenopathy' He has activity in his bones Plan: The Patient is going to [place] for a second opinion consult' We told patient that he needs a biopsy. CC TO: CC TO: Primary Care Provider: Moiz Mejia MD Referring Provider: JASSI BLOUNT MD Mar 24, 2020 15:05
[2020-04-10 14:11] VITALS: BP 141/72
--- NOTE | 2020-04-10 14:47 | MEDONCPDOC ---
Medical Oncology Office Note Date of Service: Apr 10, 2020 Diagnosis/Treatment History DIAGNOSIS AND TREATMENT HISTORY: Per prior notes. (Jesica likely) Marginal zone NHL per BM bx- see work-up below. - 2013 - presented with left axillary LAD. - 12/15/2013 - Left axillary LN core bx flow cytometry - atypical lymphoid proliferation w/ predominantly small lymphocytes worrisome for low grade B-cell lymphoproliferative neoplasm. Flow cytometry - small clonal B-cell population, however, further classification not possible due to limited sample. 01/07/2014, BM Bx - Marginal zone lymphoma. As of today's dictation remainder of the studies, flow cytometry, cytogenetics and FISH report requested. Specimen was sent to [facility]. Per prior notes, he had no B symptoms, had stable hemoglobin/hematocrit and platelets. 2013 PET scan - no hypermetabolic uptake in LN. Was followed expectantly with active surveillance. Interval History Patient had his second opinion in [place], They are recommending biopsy. Allergies Coded Allergies: oxycodone (Verified Adverse Reaction, Severe, MAKES HIM GO CRAZY, 01/26/19) Home Medications Reported Medications Omeprazole (Omeprazole) 40 Mg Capsule.dr, 40 MG PO DAILY 03/09/20 Cyclobenzaprine HCl (Cyclobenzaprine HCl) 10 Mg Tablet, 10 MG PO PRN for PAIN 02/15/20 Potassium Chloride (Potassium Chloride) 10 Meq Capsule.er, 10 MEQ PO DAILY 02/15/20 Furosemide (Furosemide) 40 Mg Tablet, 40 MG PO DAILY 11/30/19 Insulin Glargine,Hum.rec.anlog (Lantus Solostar) 100 Unit/Ml Inj, 35 UNIT SC QPM for 30 Days, #15 ML 11/27/18 Glimepiride (Glimepiride) 4 Mg Tab, 4 MG PO BID for 30 Days, #60 TAB 11/27/18 Metoprolol Tartrate (Lopressor) 50 Mg Tab, 50 MG PO BID for 30 Days, #60 TAB 11/27/18 Multivitamins (Thera M Plus Tablet) 1 Tab Tab, 1 TAB PO QAM for 30 Days, #30 TAB 11/27/18 Cetirizine HCl (Cetirizine HCl) 10 Mg Tab, 10 MG PO DAILY for allergy symptoms for 30 Days, #30 TAB 11/27/18 Albuterol Sulfate (Proair Hfa) 108 Mcg/Act Aer, 2 PUFF INH Q4-6HP PRN for wheezing for 21 Days, #1 INHALER 11/27/18 Lactobacillus Acidophilus (Probiotic Acidophilus) 1 Cap Cap, 1 CAP PO DAILY for 30 Days, #30 CAP 11/27/18 Aspirin (Aspirin EC) 81 Mg Tab, 81 MG PO DAILY for pain for 30 Days, #30 TAB 11/27/18 Allopurinol (Allopurinol) 100 Mg Tab, 100 MG PO DAILY for 30 Days, #30 TAB 11/27/18 Gabapentin (Neurontin) 600 Mg Tab, 600 MG PO BID for 30 Days, #90 TAB 11/27/18 Past Medical History Past Medical History: CAD Diabetes Hypertension Asthma Gout Past Surgical History: left shoulder surgery Bypass surgery heart Review of Systems General: Reports: Normal Appetite; Denies: Chills, Fatigue, Malaise Constitutional: Denies: Chills, Fatigue, Weight Loss Eyes: Denies: Vision change HEENT: Denies: Head Aches, Dysphagia, Sore Throat, Epistaxis Skin: Denies: Rash, Lesions, Jaundice, Bruising Pulmonary: Denies: Dyspnea, Cough Cardiovascular: Denies: Chest Pain, Palpitations, Orthopnea, Edema Gastrointestinal: Denies: Nausea, Vomiting, Diarrhea Genitourinary: Denies: Dysuria, Frequency, Incontinence Hematologic: Denies: Bruising, Petecchia Neurological: Denies: Change in Speech Psych: Reports: Mood Normal Physical Examination General Exam: Positive: Alert, No Acute Distress Eye Exam: Positive: PERRLA, Conjunctiva & lids normal; Negative: Sclera icteric ENT EXAM: Positive: Atraumatic, Mucous membr. moist/pink Neck Exam: Positive: Supple; Negative: JVD, Thyromegaly, Lymphadenopathy Chest Exam: Positive: Clear to auscultation, Normal air movement Heart Exam: Positive: Rate Normal Abdomen Exam: Positive: Normal bowel sounds; Negative: Tenderness, Hepatospenomegaly, Mass Extremity Exam: Negative: Clubbing, Cyanosis, Edema Skin Exam: Positive: Nl turgor and temperature; Negative: Rash, Breakdown, Lesion Neuro Exam: Positive: Normal Speech, Normal Tone Psych Exam: Positive: Mental status NL Ht / Wt Ht / Wt Height:5 Feet 7 Inches Weight: 110.700 Kg Vital Signs Vital Signs Date Time Temp Pulse Resp B/P (MAP) Pulse Ox O2 Delivery O2 Flow Rate FiO2 04/10/20 14:11 97.0 65 18 141/72 (95) 96 Room Air Assessment/Plan 79 year old man with lymphoma Now with a left lung mass suspicious for lung cancer. left suprahilar adenopathy' He has activity in his bones Plan: He now agrees to a biopsy. We will consult Thoracic surgery and Radiology for lung biopsy possible biopsy lung, left suprahilar nodes. CC TO: CC TO: Primary Care Provider: Moiz Mejia MD Referring Provider: JASSI BLOUNT MD Apr 10, 2020 14:33
[2020-05-19 11:05] VITALS: BP 140/79
--- NOTE | 2020-05-19 11:46 | MEDONCPDOC ---
Medical Oncology Office Note Date of Service: May 19, 2020 Diagnosis/Treatment History DIAGNOSIS AND TREATMENT HISTORY: Per prior notes. (Jesica likely) Marginal zone NHL per BM bx- see work-up below. - 2013 - presented with left axillary LAD. - 12/15/2013 - Left axillary LN core bx flow cytometry - atypical lymphoid proliferation w/ predominantly small lymphocytes worrisome for low grade B-cell lymphoproliferative neoplasm. Flow cytometry - small clonal B-cell population, however, further classification not possible due to limited sample. 01/07/2014, BM Bx - Marginal zone lymphoma. As of today's dictation remainder of the studies, flow cytometry, cytogenetics and FISH report requested. Specimen was sent to [facility]. Per prior notes, he had no B symptoms, had stable hemoglobin/hematocrit and platelets. 2013 PET scan - no hypermetabolic uptake in LN. Was followed expectantly with active surveillance. Patient has a positive biopsy for PD-L1 positive non small cell poorly differentiated lung cancer. He has been sen by radiation oncology. Current plan is to start combined chemotherapy and radiation. Staging studies to date do no show distant disease. Allergies Coded Allergies: oxycodone (Verified Adverse Reaction, Severe, MAKES HIM GO CRAZY, 01/26/19) Home Medications Reported Medications Omeprazole (Omeprazole) 40 Mg Capsule.dr, 40 MG PO DAILY 03/09/20 Cyclobenzaprine HCl (Cyclobenzaprine HCl) 10 Mg Tablet, 10 MG PO QHS 02/15/20 Potassium Chloride (Potassium Chloride) 10 Meq Capsule.er, 10 MEQ PO DAILY 02/15/20 Furosemide (Furosemide) 40 Mg Tablet, 40 MG PO DAILY 11/30/19 Insulin Glargine,Hum.rec.anlog (Lantus Solostar) 100 Unit/Ml Inj, 35 UNIT SC QAM 11/27/18 Glimepiride (Glimepiride) 4 Mg Tab, 8 MG PO DAILY 11/27/18 Metoprolol Tartrate (Lopressor) 50 Mg Tab, 50 MG PO BID 11/27/18 Multivitamins (Thera M Plus Tablet) 1 Tab Tab, 1 TAB PO DAILY 11/27/18 Cetirizine HCl (Cetirizine HCl) 10 Mg Tab, 10 MG PO DAILY 11/27/18 Albuterol Sulfate (Proair Hfa) 108 Mcg/Act Aer, 2 PUFF INH Q4H PRN for SOB/WHEEZING 11/27/18 Lactobacillus Acidophilus (Probiotic Acidophilus) 1 Cap Cap, 1 CAP PO DAILY 11/27/18 Aspirin (Aspirin EC) 81 Mg Tab, 81 MG PO DAILY 11/27/18 Allopurinol (Allopurinol) 100 Mg Tab, 200 MG PO DAILY 11/27/18 Gabapentin (Neurontin) 600 Mg Tab, 600 MG PO BID 11/27/18 Past Medical History Past Medical History: CAD Diabetes Hypertension Asthma Gout Past Surgical History: left shoulder surgery Bypass surgery heart Review of Systems General: Reports: Normal Appetite; Denies: Chills, Fatigue, Malaise Constitutional: Denies: Chills, Fatigue, Weight Loss Eyes: Denies: Vision change HEENT: Denies: Head Aches, Dysphagia, Sore Throat, Epistaxis Skin: Denies: Rash, Lesions, Jaundice, Bruising Pulmonary: Denies: Dyspnea, Cough Cardiovascular: Denies: Chest Pain, Palpitations, Orthopnea, Edema Breast: Denies: New Breast Lumps / Masses, Breast Skin Changes, Breast Pain or Tenderness Gastrointestinal: Denies: Nausea, Vomiting, Diarrhea Genitourinary: Denies: Dysuria, Frequency, Incontinence Hematologic: Denies: Bruising, Petecchia Neurological: Denies: Weakness, Numbness, Change in Speech Psych: Reports: Mood Normal Physical Examination General Exam: Positive: Alert, No Acute Distress Eye Exam: Positive: PERRLA, Conjunctiva & lids normal; Negative: Sclera icteric ENT EXAM: Positive: Atraumatic, Mucous membr. moist/pink Neck Exam: Positive: Supple; Negative: JVD, Thyromegaly, Lymphadenopathy Chest Exam: Positive: Clear to auscultation, Normal air movement, Other (midline old scar ) Heart Exam: Positive: Rate Normal Breast Exam: Positive: Symmetric Bilaterally; Negative: Lumps or Masses, Skin Changes Abdomen Exam: Positive: Normal bowel sounds; Negative: Tenderness, Hepatospenomegaly, Mass Extremity Exam: Positive: Swelling (left leg had juan stripping scar and it is bigger than right leg. ); Negative: Clubbing, Cyanosis Skin Exam: Positive: Nl turgor and temperature; Negative: Rash, Breakdown, Lesion Neuro Exam: Positive: Normal Gait, Normal Speech, Normal Tone Psych Exam: Positive: Mental status NL Ht / Wt Ht / Wt Height:5 Feet 7 Inches Weight: 105.600 Kg Vital Signs Vital Signs Date Time Temp Pulse Resp B/P (MAP) Pulse Ox O2 Delivery O2 Flow Rate FiO2 05/19/20 11:05 96.7 68 18 140/79 (99) 96 Room Air Assessment/Plan 79 year old man with lymphoma Now with a left lung mass. Biopsy positive for PD-L1 poorly differentiated lung cancer Plan: Orders written for weekly chemotherapy. CC TO: CC TO: Primary Care Provider: Moiz Mejia MD Referring Provider: JASSI BLOUNT MD May 19, 2020 11:46
[2020-05-19 12:06] LABS: BASO # 0.1 10^3/uL (0.0-0.2); BASO % 1.4 % (0.0-1.0); EOS # 1.2 10^3/uL (0.0-0.5); HEMATOCRIT 40.8 % (42.0-52.0); HEMOGLOBIN 13.6 g/dl (13.5-17.5); LYMPH # 2.6 10^3/uL (1.5-5.0); LYMPH % 28.7 % (24.0-44.0); MEAN CORPUSCULAR HEMOGLOBIN 31.4 pg (27.0-33.0); MEAN CORPUSCULAR HGB CONC 33.3 g/dl (32.0-36.5); MEAN CORPUSCULAR VOLUME 94.2 fl (80.0-96.0); MONO # 0.9 10^3/uL (0.0-0.8); MONO % 10.3 % (0.0-5.0); NEUTROPHILS # 4.2 10^3/uL (1.5-8.5); NEUTROPHILS % 46.2 % (36.0-66.0); PLATELET COUNT, AUTOMATED 203 10^3/uL (150-450); RED BLOOD COUNT 4.33 10^6/uL (4.30-6.10)
[2020-05-19 12:46] LABS: ALBUMIN 3.8 GM/DL (3.2-5.2); BILIRUBIN,TOTAL 0.6 MG/DL (0.2-1.0); CALCIUM LEVEL 9.7 MG/DL (8.8-10.2); CREATININE FOR GFR 1.24 MG/DL (0.70-1.30); GLOMERULAR FILTRATION RATE 59.7 (>35); POTASSIUM SERUM 4.4 MEQ/L (3.5-5.1); TOTAL PROTEIN 8.3 GM/DL (6.4-8.2)
[2020-06-06 11:51] VITALS: BP 131/71
--- NOTE | 2020-06-06 12:15 | MEDONCPDOC ---
Medical Oncology Office Note Date of Service: Jun 06, 2020 Diagnosis/Treatment History DIAGNOSIS AND TREATMENT HISTORY: Per prior notes. (Jesica likely) Marginal zone NHL per BM bx- see work-up below. - 2013 - presented with left axillary LAD. - 12/15/2013 - Left axillary LN core bx flow cytometry - atypical lymphoid proliferation w/ predominantly small lymphocytes worrisome for low grade B-cell lymphoproliferative neoplasm. Flow cytometry - small clonal B-cell population, however, further classification not possible due to limited sample. 01/07/2014, BM Bx - Marginal zone lymphoma. As of today's dictation remainder of the studies, flow cytometry, cytogenetics and FISH report requested. Specimen was sent to [facility]. Per prior notes, he had no B symptoms, had stable hemoglobin/hematocrit and platelets. 2013 PET scan - no hypermetabolic uptake in LN. Was followed expectantly with active surveillance. Patient has a positive biopsy for PD-L1 positive non small cell poorly differentiated lung cancer. He has been sen by radiation oncology. Current plan is to start combined chemotherapy and radiation. Staging studies to date do no show distant disease. Interval History patient has started simulation for radiation. He does not have a PICC or a port He has some chest discomfort . He has a a hoarse voice Allergies Coded Allergies: oxycodone (Verified Adverse Reaction, Severe, MAKES HIM GO CRAZY, 01/26/19) Home Medications Reported Medications Omeprazole (Omeprazole) 40 Mg Capsule.dr, 40 MG PO DAILY 03/09/20 Cyclobenzaprine HCl (Cyclobenzaprine HCl) 10 Mg Tablet, 10 MG PO QHS 02/15/20 Potassium Chloride (Potassium Chloride) 10 Meq Capsule.er, 10 MEQ PO DAILY 02/15/20 Furosemide (Furosemide) 40 Mg Tablet, 40 MG PO DAILY 11/30/19 Insulin Glargine,Hum.rec.anlog (Lantus Solostar) 100 Unit/Ml Inj, 30 UNIT SC QAM 11/27/18 Glimepiride (Glimepiride) 4 Mg Tab, 8 MG PO DAILY 11/27/18 Metoprolol Tartrate (Lopressor) 50 Mg Tab, 50 MG PO BID 11/27/18 Multivitamins (Thera M Plus Tablet) 1 Tab Tab, 1 TAB PO EVERY OTHER DAY 11/27/18 Cetirizine HCl (Cetirizine HCl) 10 Mg Tab, 10 MG PO DAILY 11/27/18 Albuterol Sulfate (Proair Hfa) 108 Mcg/Act Aer, 2 PUFF INH Q4H PRN for SOB/WHEEZING 11/27/18 Lactobacillus Acidophilus (Probiotic Acidophilus) 1 Cap Cap, 1 CAP PO DAILY 11/27/18 Aspirin (Aspirin EC) 81 Mg Tab, 81 MG PO DAILY 11/27/18 Allopurinol (Allopurinol) 100 Mg Tab, 200 MG PO DAILY 11/27/18 Gabapentin (Neurontin) 600 Mg Tab, 600 MG PO BID 11/27/18 Past Medical History Past Medical History: CAD Diabetes Hypertension Asthma Gout Past Surgical History: left shoulder surgery Bypass surgery heart Review of Systems General: Reports: Normal Appetite; Denies: Chills, Fatigue, Malaise Constitutional: Denies: Chills, Fatigue, Weight Loss Eyes: Denies: Vision change HEENT: Denies: Head Aches, Dysphagia, Sore Throat, Epistaxis Skin: Denies: Rash, Lesions, Jaundice, Bruising Pulmonary: Denies: Dyspnea, Cough Cardiovascular: Denies: Chest Pain, Palpitations, Orthopnea, Edema Breast: Denies: New Breast Lumps / Masses, Breast Skin Changes, Breast Pain or Tenderness Gastrointestinal: Denies: Nausea, Vomiting, Diarrhea Genitourinary: Denies: Dysuria, Frequency, Incontinence Hematologic: Denies: Bruising, Petecchia Neurological: Denies: Weakness, Numbness, Change in Speech Psych: Reports: Mood Normal Physical Examination General Exam: Positive: Alert, No Acute Distress Eye Exam: Positive: PERRLA, Conjunctiva & lids normal; Negative: Sclera icteric ENT EXAM: Positive: Atraumatic, Mucous membr. moist/pink Neck Exam: Positive: Supple; Negative: JVD, Thyromegaly, Lymphadenopathy Chest Exam: Positive: Clear to auscultation, Normal air movement, Other (midline old scar ) Heart Exam: Positive: Rate Normal Breast Exam: Positive: Symmetric Bilaterally; Negative: Lumps or Masses, Skin Changes Abdomen Exam: Positive: Normal bowel sounds; Negative: Tenderness, Hepatospenomegaly, Mass Extremity Exam: Negative: Clubbing, Cyanosis Skin Exam: Positive: Nl turgor and temperature; Negative: Rash, Breakdown, Lesion Neuro Exam: Positive: Normal Gait, Normal Speech, Normal Tone Psych Exam: Positive: Mental status NL Ht / Wt Ht / Wt Height:5 Feet 7 Inches Weight: 101.400 Kg Vital Signs Vital Signs Date Time Temp Pulse Resp B/P (MAP) Pulse Ox O2 Delivery O2 Flow Rate FiO2 06/06/20 11:51 96.7 69 18 131/71 (91) 94 Room Air Laboratory Data Laboratory Tests Test 06/06/20 11:12 Assessment/Plan 79 year old man with lymphoma Now with a left lung mass. Biopsy positive for PD-L1 poorly differentiated lung cancer Plan: We ordered a port for chemiotherapy. Start chemotherapy week of radiation starting CC TO: CC TO: Primary Care Provider: Moiz Mejia MD Referring Provider: JASSI BLOUNT MD Jun 06, 2020 12:15
[2020-06-06 12:16] LABS: BASO # 0.2 10^3/uL (0.0-0.2); BASO % 1.5 % (0.0-1.0); EOS # 0.9 10^3/uL (0.0-0.5); EOS % 9.6 % (0.0-3.0); HEMATOCRIT 40.8 % (42.0-52.0); HEMOGLOBIN 13.5 g/dl (13.5-17.5); LYMPH # 2.7 10^3/uL (1.5-5.0); LYMPH % 27.8 % (24.0-44.0); MEAN CORPUSCULAR HEMOGLOBIN 31.5 pg (27.0-33.0); MEAN CORPUSCULAR HGB CONC 33.1 g/dl (32.0-36.5); MEAN CORPUSCULAR VOLUME 95.1 fl (80.0-96.0); MONO # 1.1 10^3/uL (0.0-0.8); MONO % 11.5 % (0.0-5.0); NEUTROPHILS # 4.8 10^3/uL (1.5-8.5); NEUTROPHILS % 49.1 % (36.0-66.0); PLATELET COUNT, AUTOMATED 228 10^3/uL (150-450); RED BLOOD COUNT 4.29 10^6/uL (4.30-6.10); WHITE BLOOD COUNT 9.8 10^3/uL (4.0-10.0)
[2020-06-06 12:32] LABS: ALBUMIN 3.5 GM/DL (3.2-5.2); ALT/SGPT 16 U/L (12-78); BILIRUBIN,TOTAL 0.8 MG/DL (0.2-1.0); BLOOD UREA NITROGEN 19 MG/DL (7-18); CALCIUM LEVEL 10.5 MG/DL (8.8-10.2); CARBON DIOXIDE LEVEL 30 MEQ/L (21-32); CHLORIDE LEVEL 101 MEQ/L (98-107); GLOMERULAR FILTRATION RATE > 60.0 (>35); GLUCOSE, FASTING 126 MG/DL (70-100); POTASSIUM SERUM 4.3 MEQ/L (3.5-5.1); SODIUM LEVEL 136 MEQ/L (136-145); TOTAL PROTEIN 8.2 GM/DL (6.4-8.2)
[2020-06-06 13:20] LABS: INR 1.18; PROTHROMBIN TIME 15.2 SECONDS (11.8-14.0)
[2020-06-06 13:21] LABS: PARTIAL THROMBOPLASTIN TIME 30.9 SECONDS (25.0-38.4)
[2020-06-07 13:07] VITALS: BP 131/77
--- NOTE | 2020-06-07 14:37 | ONC.PHACK ---
CHEMO ADMIN CHECKLIST Order Contains Pt ID: Name, Order on Chemo Order Form?: Yes Order Form Includes ALL: Correct Tx Day, Correct Date, Correct Cycle Number Pt ID on Order form Matches: Pt ID on PHA Label Med on Chemo OrderForm Matches: PHA Label, Med Used for Preparation [facility] Jun 07, 2020 14:37
[2020-06-14 11:12] VITALS: BP 142/74
[2020-06-14 11:25] LABS: BASO # 0.1 10^3/uL (0.0-0.2); BASO % 1.1 % (0.0-1.0); EOS # 0.4 10^3/uL (0.0-0.5); EOS % 5.4 % (0.0-3.0); HEMATOCRIT 35.7 % (42.0-52.0); HEMOGLOBIN 11.8 g/dl (13.5-17.5); MEAN CORPUSCULAR HEMOGLOBIN 31.5 pg (27.0-33.0); MEAN CORPUSCULAR HGB CONC 33.1 g/dl (32.0-36.5); MEAN CORPUSCULAR VOLUME 95.2 fl (80.0-96.0); MONO # 0.5 10^3/uL (0.0-0.8); MONO % 7.9 % (0.0-5.0); NEUTROPHILS # 4.6 10^3/uL (1.5-8.5); NEUTROPHILS % 69.7 % (36.0-66.0); PLATELET COUNT, AUTOMATED 194 10^3/uL (150-450); RED BLOOD COUNT 3.75 10^6/uL (4.30-6.10); WHITE BLOOD COUNT 6.6 10^3/uL (4.0-10.0)
[2020-06-14 11:56] LABS: ALBUMIN 3.3 GM/DL (3.2-5.2); ALT/SGPT 16 U/L (12-78); BLOOD UREA NITROGEN 32 MG/DL (7-18); CARBON DIOXIDE LEVEL 29 MEQ/L (21-32); CHLORIDE LEVEL 98 MEQ/L (98-107); CREATININE FOR GFR 1.23 MG/DL (0.70-1.30); GLOMERULAR FILTRATION RATE > 60.0 (>35); GLUCOSE, FASTING 205 MG/DL (70-100); POTASSIUM SERUM 4.7 MEQ/L (3.5-5.1); SODIUM LEVEL 132 MEQ/L (136-145); TOTAL PROTEIN 7.9 GM/DL (6.4-8.2)
--- NOTE | 2020-06-14 14:54 | ONC.PHACK ---
CHEMO ADMIN CHECKLIST Order Contains Pt ID: Name, Order on Chemo Order Form?: Yes Order Form Includes ALL: Correct Tx Day, Correct Date, Correct Cycle Number Pt ID on Order form Matches: Pt ID on PHA Label Med on Chemo OrderForm Matches: PHA Label, Med Used for Preparation [facility] Jun 14, 2020 14:54
[2020-06-22 11:14] LABS: BASO # 0.1 10^3/uL (0.0-0.2); BASO % 1.3 % (0.0-1.0); EOS # 0.4 10^3/uL (0.0-0.5); HEMATOCRIT 34.3 % (42.0-52.0); HEMOGLOBIN 11.3 g/dl (13.5-17.5); LYMPH # 0.6 10^3/uL (1.5-5.0); LYMPH % 13.5 % (24.0-44.0); MEAN CORPUSCULAR HEMOGLOBIN 31.7 pg (27.0-33.0); MEAN CORPUSCULAR HGB CONC 32.9 g/dl (32.0-36.5); MEAN CORPUSCULAR VOLUME 96.1 fl (80.0-96.0); MONO # 0.7 10^3/uL (0.0-0.8); NEUTROPHILS # 2.9 10^3/uL (1.5-8.5); NEUTROPHILS % 61.7 % (36.0-66.0); PLATELET COUNT, AUTOMATED 174 10^3/uL (150-450); RED BLOOD COUNT 3.57 10^6/uL (4.30-6.10); WHITE BLOOD COUNT 4.7 10^3/uL (4.0-10.0)
[2020-06-22 11:15] VITALS: BP 124/73
[2020-06-22 11:37] LABS: ALBUMIN 2.9 GM/DL (3.2-5.2); ALT/SGPT 19 U/L (12-78); BILIRUBIN,TOTAL 0.7 MG/DL (0.2-1.0); BLOOD UREA NITROGEN 12 MG/DL (7-18); CALCIUM LEVEL 10.5 MG/DL (8.8-10.2); CARBON DIOXIDE LEVEL 30 MEQ/L (21-32); CHLORIDE LEVEL 103 MEQ/L (98-107); CREATININE FOR GFR 0.93 MG/DL (0.70-1.30); GLOMERULAR FILTRATION RATE > 60.0 (>35); GLUCOSE, FASTING 93 MG/DL (70-100); POTASSIUM SERUM 4.8 MEQ/L (3.5-5.1); SODIUM LEVEL 134 MEQ/L (136-145); TOTAL PROTEIN 7.2 GM/DL (6.4-8.2)
--- NOTE | 2020-06-22 11:43 | MEDONCPDOC ---
Medical Oncology Office Note Date of Service: Jun 22, 2020 Diagnosis/Treatment History DIAGNOSIS AND TREATMENT HISTORY: Per prior notes. (Jesica likely) Marginal zone NHL per BM bx- see work-up below. - 2013 - presented with left axillary LAD. - 12/15/2013 - Left axillary LN core bx flow cytometry - atypical lymphoid proliferation w/ predominantly small lymphocytes worrisome for low grade B-cell lymphoproliferative neoplasm. Flow cytometry - small clonal B-cell population, however, further classification not possible due to limited sample. 01/07/2014, BM Bx - Marginal zone lymphoma. As of today's dictation remainder of the studies, flow cytometry, cytogenetics and FISH report requested. Specimen was sent to [facility]. Per prior notes, he had no B symptoms, had stable hemoglobin/hematocrit and platelets. 2013 PET scan - no hypermetabolic uptake in LN. Was followed expectantly with active surveillance. Patient has a positive biopsy for PD-L1 positive non small cell poorly differentiated lung cancer. He has been sen by radiation oncology. Current plan is to start combined chemotherapy and radiation. Staging studies to date do no show distant disease. June 22, 2020 The patient has been getting daily radiation. He has been getting weekly chemotherapy. He feels burning in his chest. He has no skin lesions He is taking omeprazole. Allergies Coded Allergies: oxycodone (Verified Adverse Reaction, Severe, MAKES HIM GO CRAZY, 01/26/19) Home Medications Reported Medications Omeprazole (Omeprazole) 40 Mg Capsule.dr, 40 MG PO DAILY 03/09/20 Cyclobenzaprine HCl (Cyclobenzaprine HCl) 10 Mg Tablet, 10 MG PO QHS 02/15/20 Potassium Chloride (Potassium Chloride) 10 Meq Capsule.er, 10 MEQ PO DAILY 02/15/20 Furosemide (Furosemide) 40 Mg Tablet, 40 MG PO DAILY 11/30/19 Insulin Glargine,Hum.rec.anlog (Lantus Solostar) 100 Unit/Ml Inj, 22 UNIT SC QAM 11/27/18 Glimepiride (Glimepiride) 4 Mg Tab, 4 MG PO DAILY 11/27/18 Metoprolol Tartrate (Lopressor) 50 Mg Tab, 50 MG PO BID 11/27/18 Multivitamins (Thera M Plus Tablet) 1 Tab Tab, 1 TAB PO EVERY OTHER DAY 11/27/18 Cetirizine HCl (Cetirizine HCl) 10 Mg Tab, 10 MG PO DAILY 11/27/18 Albuterol Sulfate (Proair Hfa) 108 Mcg/Act Aer, 2 PUFF INH Q4H PRN for SOB/WHEEZING 11/27/18 Lactobacillus Acidophilus (Probiotic Acidophilus) 1 Cap Cap, 1 CAP PO DAILY 11/27/18 Aspirin (Aspirin EC) 81 Mg Tab, 81 MG PO DAILY 11/27/18 Allopurinol (Allopurinol) 100 Mg Tab, 200 MG PO DAILY 11/27/18 Gabapentin (Neurontin) 600 Mg Tab, 600 MG PO BID 11/27/18 Past Medical History Past Medical History: CAD Diabetes Hypertension Asthma Gout Past Surgical History: left shoulder surgery Bypass surgery heart Review of Systems General: Reports: Normal Appetite; Denies: Chills, Fatigue, Malaise Constitutional: Denies: Chills, Fatigue, Weight Loss Eyes: Denies: Vision change HEENT: Denies: Head Aches, Dysphagia, Sore Throat, Epistaxis Skin: Denies: Rash, Lesions, Jaundice, Bruising Pulmonary: Denies: Dyspnea, Cough Cardiovascular: Denies: Chest Pain, Palpitations, Orthopnea, Edema Breast: Denies: New Breast Lumps / Masses, Breast Skin Changes, Breast Pain or Tenderness Gastrointestinal: Denies: Nausea, Vomiting, Diarrhea Genitourinary: Denies: Dysuria, Frequency, Incontinence Hematologic: Denies: Bruising, Petecchia Neurological: Denies: Weakness, Numbness, Change in Speech Psych: Reports: Mood Normal Physical Examination General Exam: Positive: Alert, No Acute Distress Eye Exam: Positive: PERRLA, Conjunctiva & lids normal; Negative: Sclera icteric ENT EXAM: Positive: Atraumatic, Mucous membr. moist/pink Neck Exam: Positive: Supple; Negative: JVD, Thyromegaly, Lymphadenopathy Chest Exam: Positive: Clear to auscultation, Normal air movement, Other (mi dline old scar ) Heart Exam: Positive: Rate Normal Breast Exam: Positive: Symmetric Bilaterally; Negative: Lumps or Masses, Skin Changes Abdomen Exam: Positive: Normal bowel sounds; Negative: Tenderness, Hepatospenomegaly, Mass Extremity Exam: Negative: Clubbing, Cyanosis Skin Exam: Positive: Nl turgor and temperature; Negative: Rash, Breakdown, Lesion Neuro Exam: Positive: Normal Gait, Normal Speech, Normal Tone Psych Exam: Positive: Mental status NL Ht / Wt Ht / Wt Height:5 Feet 7 Inches Weight: 98.700 Kg Vital Signs Vital Signs Date Time Temp Pulse Resp B/P (MAP) Pulse Ox O2 Delivery O2 Flow Rate FiO2 06/22/20 11:15 96.7 74 18 124/73 (90) 95 Room Air Laboratory Data Laboratory Tests Test 06/22/20 11:01 Laboratory Tests 06/22/20 11:01 Assessment/Plan 79 year old man with lymphoma Now with a left lung mass. Biopsy positive for PD-L1 poorly differentiated lung cancer He is getting radiation and Chemotherapy. Plan: Continue radiation as ordered. CC TO: CC TO: Primary Care Provider: Moiz Mejia MD Referring Provider: JASSI BLOUNT MD Jun 22, 2020 11:34
--- NOTE | 2020-06-22 11:52 | ONC.PHACK ---
CHEMO ADMIN CHECKLIST Order Contains Pt ID: Name, Order on Chemo Order Form?: Yes Order Form Includes ALL: Correct Tx Day, Correct Date, Correct Cycle Number Pt ID on Order form Matches: Pt ID on PHA Label Med on Chemo OrderForm Matches: PHA Label, Med Used for Preparation [facility] Jun 22, 2020 11:52
[2020-06-29 12:00] VITALS: BP 104/60
[2020-06-29 12:18] LABS: BASO # 0.1 10^3/uL (0.0-0.2); BASO % 1.8 % (0.0-1.0); EOS # 0.3 10^3/uL (0.0-0.5); HEMATOCRIT 33.9 % (42.0-52.0); HEMOGLOBIN 11.2 g/dl (13.5-17.5); LYMPH # 0.5 10^3/uL (1.5-5.0); LYMPH % 11.2 % (24.0-44.0); MEAN CORPUSCULAR HEMOGLOBIN 31.2 pg (27.0-33.0); MEAN CORPUSCULAR VOLUME 94.4 fl (80.0-96.0); MONO # 0.6 10^3/uL (0.0-0.8); MONO % 12.7 % (0.0-5.0); NEUTROPHILS % 66.4 % (36.0-66.0); PLATELET COUNT, AUTOMATED 149 10^3/uL (150-450); RED BLOOD COUNT 3.59 10^6/uL (4.30-6.10); WHITE BLOOD COUNT 4.6 10^3/uL (4.0-10.0)
[2020-06-29 12:42] LABS: ALT/SGPT 26 U/L (12-78); BLOOD UREA NITROGEN 24 MG/DL (7-18); CALCIUM LEVEL 9.8 MG/DL (8.8-10.2); CARBON DIOXIDE LEVEL 29 MEQ/L (21-32); CHLORIDE LEVEL 99 MEQ/L (98-107); CREATININE FOR GFR 1.06 MG/DL (0.70-1.30); GLOMERULAR FILTRATION RATE > 60.0 (>35); GLUCOSE, FASTING 205 MG/DL (70-100); POTASSIUM SERUM 4.3 MEQ/L (3.5-5.1); SODIUM LEVEL 134 MEQ/L (136-145); TOTAL PROTEIN 6.8 GM/DL (6.4-8.2)
--- NOTE | 2020-06-29 13:01 | ONC.PHACK ---
CHEMO ADMIN CHECKLIST Order Contains Pt ID: Name, Order on Chemo Order Form?: Yes Order Form Includes ALL: Correct Tx Day, Correct Date, Correct Cycle Number Pt ID on Order form Matches: Pt ID on PHA Label Med on Chemo OrderForm Matches: PHA Label, Med Used for Preparation [facility] Jun 29, 2020 13:01
[~2020-07-06] VITALS: Ht 170.2 cm; Wt 96.3 kg
[~2020-07-06 09:45] MED LIST changes: +ACET1TAB55 PO; +ATIV1TAB10 PO; +CEPH500C PO; +FAMOTIDINE 20 MG IV IV ONE; +HYOS125TA PO; +LAMI1AER EX; +MORP20SO3 PO; +MSIR30TA PO; +NS IV ONE; +PACLITAXEL IV ONE; +PALONOSETRON 250 MCG IV IV ONE; +SENO8.6T10 PO; +SODIUM CHLORIDE 0.9% INJ 10 ML SYR IV PRN; +TERB1CRE2 TOP; +TRAM50TA2 PO; +[UNRECOGNIZED DRUG - OTHER] IV ONE; +dexameTHASONE 10 MG IV IV ONE; +diphenhydrAMINE 25 MG IV IV ONE
[2020-07-06 10:06] VITALS: BP 122/74
--- NOTE | 2020-07-06 15:13 | MEDONCPDOC ---
Medical Oncology Office Note Date of Service: Jul 06, 2020 Diagnosis/Treatment History DIAGNOSIS AND TREATMENT HISTORY: Per prior notes. (Jesica likely) Marginal zone NHL per BM bx- see work-up below. - 2013 - presented with left axillary LAD. - 12/15/2013 - Left axillary LN core bx flow cytometry - atypical lymphoid proliferation w/ predominantly small lymphocytes worrisome for low grade B-cell lymphoproliferative neoplasm. Flow cytometry - small clonal B-cell population, however, further classification not possible due to limited sample. 01/07/2014, BM Bx - Marginal zone lymphoma. As of today's dictation remainder of the studies, flow cytometry, cytogenetics and FISH report requested. Specimen was sent to [facility]. Per prior notes, he had no B symptoms, had stable hemoglobin/hematocrit and platelets. 2013 PET scan - no hypermetabolic uptake in LN. Was followed expectantly with active surveillance. Patient has a positive biopsy for PD-L1 positive non small cell poorly differentiated lung cancer. He has been sen by radiation oncology. Current plan is to start combined chemotherapy and radiation. Staging studies to date do no show distant disease. June 22, 2020 The patient has been getting daily radiation. He has been getting weekly chemotherapy. He feels burning in his chest. He has no skin lesions He is taking omeprazole. July 06, 2020 Patient has a new problem. He has a new fracture of his left hip felt to be pathologic fracture from metastatic cancer. He has decided that he does not want any more chemotherapy. He continues with radiation. We reviewed his Pathology. He is PD-L1 positive. We offered the patient Keytruda. He will think about it. He is not agreeing to Keytruda at this time. Allergies Coded Allergies: oxycodone (Verified Adverse Reaction, Severe, MAKES HIM GO CRAZY, 01/26/19) Home Medications Active Scripts Sennosides/Docusate Sodium (Senokot-S Tablet) 1 Each Tablet, 1 TAB PO BIDP PRN for CONSTIPATION for 10 Days, #20 TAB Prov:RANDI ARGUELLO MD 07/03/20 Morphine Sulfate (Morphine Sulfate) 30 Mg Tablet, 15 MG PO Q4HP PRN for SEVERE PAIN (PS 8-10) MDD 4 for 3 Days, #12 TAB Prov:RANDI ARGUELLO MD 07/03/20 Acetaminophen (Acetaminophen) 325 Mg Tablet, 650 MG PO Q4HP PRN for PAIN OR FEVER for 10 Days, #60 TAB Prov:RANDI ARGUELLO MD 07/03/20 Reported Medications Terbinafine HCl (Terbinafine) 30 Gm Cream..g., 1 APLCT TOP BID apply to abdomin 06/30/20 Omeprazole (Omeprazole) 40 Mg Capsule.dr, 40 MG PO DAILY 03/09/20 Cyclobenzaprine HCl (Cyclobenzaprine HCl) 10 Mg Tablet, 10 MG PO QHS 02/15/20 Potassium Chloride (Potassium Chloride) 10 Meq Capsule.er, 10 MEQ PO DAILY 02/15/20 Furosemide (Furosemide) 40 Mg Tablet, 40 MG PO DAILY 11/30/19 Insulin Glargine,Hum.rec.anlog (Lantus Solostar) 100 Unit/Ml Inj, 22 UNIT SC QAM 11/27/18 Glimepiride (Glimepiride) 4 Mg Tab, 4 MG PO DAILY 11/27/18 Metoprolol Tartrate (Lopressor) 50 Mg Tab, 50 MG PO BID 11/27/18 Multivitamins (Thera M Plus Tablet) 1 Tab Tab, 1 TAB PO EVERY OTHER DAY 11/27/18 Cetirizine HCl (Cetirizine HCl) 10 Mg Tab, 10 MG PO DAILY 11/27/18 Albuterol Sulfate (Proair Hfa) 108 Mcg/Act Aer, 2 PUFF INH Q4H PRN for SOB/WHEEZING 11/27/18 Lactobacillus Acidophilus (Probiotic Acidophilus) 1 Cap Cap, 1 CAP PO DAILY 11/27/18 Aspirin (Aspirin EC) 81 Mg Tab, 81 MG PO DAILY 11/27/18 Allopurinol (Allopurinol) 100 Mg Tab, 200 MG PO DAILY 11/27/18 Gabapentin (Neurontin) 600 Mg Tab, 600 MG PO BID 11/27/18 Discontinued Reported Medications Tolnaftate (Lamisil AF) 133 Gm Aero.powd, 1 % EX, CONTAINER 06/30/20 Past Medical History Past Medical History: CAD Diabetes Hypertension Asthma Gout Past Surgical History: left shoulder surgery Bypass surgery heart Review of Systems General: Reports: Normal Appetite; Denies: Chills, Fatigue, Malaise Constitutional: Denies: Chills, Fatigue, Weight Loss Eyes: Denies: Vision change HEENT: Denies: Head Aches, Dysphagia, Sore Throat, Epistaxis Skin: Denies: Rash, Lesions, Jaundice, Bruising Pulmonary: Denies: Dyspnea, Cough Cardiovascular: Denies: Chest Pain, Palpitations, Orthopnea, Edema Gastrointestinal: Denies: Nausea, Vomiting, Diarrhea Genitourinary: Denies: Dysuria, Frequency, Incontinence Hematologic: Denies: Bruising, Petecchia Musculoskeletal: Reports: Other (left hip fracture . ) Neurological: Denies: Weakness, Numbness, Change in Speech Psych: Reports: Mood Normal Physical Examination General Exam: Positive: Alert, No Acute Distress, Other (seen in a wheelchair ) Eye Exam: Positive: PERRLA, Conjunctiva & lids normal; Negative: Sclera icteric ENT EXAM: Positive: Atraumatic, Mucous membr. moist/pink Neck Exam: Positive: Supple; Negative: JVD, Thyromegaly, Lymphadenopathy Chest Exam: Positive: Clear to auscultation, Normal air movement, Other (midline old scar ) Heart Exam: Positive: Rate Normal Abdomen Exam: Positive: Normal bowel sounds; Negative: Tenderness, Hepatospenomegaly, Mass Extremity Exam: Negative: Clubbing, Cyanosis Skin Exam: Positive: Nl turgor and temperature; Negative: Rash, Breakdown, Lesion Neuro Exam: Positive: Normal Gait, Normal Speech, Normal Tone Psych Exam: Positive: Mental status NL Ht / Wt Ht / Wt Height:5 Feet 7 Inches Weight: 96.300 Kg Vital Signs Vital Signs Date Time Temp Pulse Resp B/P (MAP) Pulse Ox O2 Delivery O2 Flow Rate FiO2 07/06/20 10:06 95.2 88 16 122/74 (90) 95 Room Air Laboratory Data Laboratory Tests Test 06/29/20 12:07 06/30/20 18:53 07/01/20 14:25 07/02/20 06:06 Blood Urea Nitrogen 24 MG/DL (7-18) H 28 MG/DL (7-18) H 29 MG/DL (7-18) H 25 MG/DL (7-18) H Creatinine 1.06 MG/DL (0.70-1.30) 1.06 MG/DL (0.70-1.30) 0.99 MG/DL (0.70-1.30) 0.98 MG/DL (0.70-1.30) Glomerular Filtration Rate > 60.0 (>35) > 60.0 (>35) > 60.0 (>35) > 60.0 (>35) Fasting Glucose 205 MG/DL (70-100) H 137 MG/DL (70-100) H 100 MG/DL (70-100) 64 MG/DL (70-100) L Calcium Level 9.8 MG/DL (8.8-10.2) 8.8 MG/DL (8.8-10.2) 8.7 MG/DL (8.8-10.2) L 9.0 MG/DL (8.8-10.2) Total Bilirubin 1.0 MG/DL (0.2-1.0) 0.7 MG/DL (0.2-1.0) Aspartate Amino Transf (AST/SGOT) 33 U/L (7-37) 45 U/L (7-37) H Alanine Aminotransferase (ALT/SGPT) 26 U/L (12-78) 27 U/L (12-78) Total Protein 6.8 GM/DL (6.4-8.2) 6.6 GM/DL (6.4-8.2) Sodium Level 134 MEQ/L (136-145) L 135 MEQ/L (136-145) L 140 MEQ/L (136-145) 141 MEQ/L (136-145) Albumin 3.0 GM/DL (3.2-5.2) L 2.7 GM/DL (3.2-5.2) L Alkaline Phosphatase 117 U/L (45-117) 113 U/L (45-117) Potassium Level 4.3 MEQ/L (3.5-5.1) 5.2 MEQ/L (3.5-5.1) H 4.2 MEQ/L (3.5-5.1) 4.4 MEQ/L (3.5-5.1) Chloride Level 99 MEQ/L (98-107) 105 MEQ/L (98-107) 105 MEQ/L (98-107) 106 MEQ/L (98-107) Carbon Dioxide Level 29 MEQ/L (21-32) 25 MEQ/L (21-32) 30 MEQ/L (21-32) 31 MEQ/L (21-32) Anion Gap 6 MEQ/L (8-16) L 5 MEQ/L (8-16) L 5 MEQ/L (8-16) L 4 MEQ/L (8-16) L Magnesium Level 1.9 MG/DL (1.8-2.4) Assessment/Plan 79 year old man with lymphoma Now with a left lung mass. Now with fracture left hip. ( greater trochanter.) Biopsy positive for PD-L1 poorly differentiated lung cancer He is getting radiation. He is now refusing systemic therapy both Chemotherapy and Keytruda. Plan: Continue radiation. Start Keytruda if the patient changes his mind. CC TO: CC TO: Primary Care Provider: Moiz Mejia MD Referring Provider: JASSI BLOUNT MD Jul 06, 2020 10:54
--- NOTE | 2020-07-07 10:10 | MEDONC ---
DATE: 05/11/2020 HISTORY OF PRESENT ILLNESS: Capo Us is an 79-year-old man. Patient has a prior history of diabetes and marginal zone lymphoma. The patient is now diagnosed with a PDL positive nonsmall cell lung cancer. Since the last visit, the patient has been seen and evaluated by radiation oncology. Radiation oncology has ordered additional staging studies. Staging studies are scheduled for 05/12/2020. Patient is offering no new complaints. REVIEW OF SYSTEMS: GENERAL: No fever. No chills. No malaise. HEAD: No headache. EYES: No blurred vision. ENT: No mouth sores. LUNGS: No cough. No dyspnea. CARDIAC: Past history of coronary artery disease, but at this time he has no chest pains and no palpitations. GASTROINTESTINAL: No nausea, vomiting, diarrhea, or constipation. GENITOURINARY: No dysuria. EXTREMITIES: Patient does have leg swelling. PHYSICAL EXAMINATION: VITAL SIGNS: Patient had a pulse of 62, respirations 16, blood pressure 124/73, temperature 97.3. GENERAL: He was awake and alert. HEAD: Normal. EYES: Extraocular motions intact. LUNGS: Bilateral breath sounds present. CARDIAC: Patient has an old healed midline thoracotomy scar. Regular rate and rhythm at the time of my exam. ABDOMEN: Soft and nontender. EXTREMITIES: Patient does have an old healed left-sided vein stripping scar. Patient does have edema in the left leg. IMPRESSION: This is an 79-year-old man with recently diagnosed lung cancer PDL positive nonsmall cell. PLAN: We need to follow up on the staging studies. If the patient does not have stage IV lung cancer, patient might be a candidate for combined chemotherapy and radiation. If the patient has oligometastatic disease, just a single metastatic disease, patient still might be a candidate for combined radiation and chemotherapy. MTDD
--- NOTE | 2020-07-07 10:13 | MEDONC ---
DATE: 04/24/2020 HISTORY OF PRESENT ILLNESS: This is an 79-year-old gentleman with prior history of diabetes and prior history of lymphoma. Patient now has a brand new left-sided lung lesion. Patient had a PET scan. The PET scan was suspicious for malignancy. Patient has undergone a biopsy of the lung lesion. The lung lesion came back positive for nonsmall cell carcinoma. PAST MEDICAL HISTORY: Significant for marginal zone lymphoma and diabetes. REVIEW OF SYSTEMS: General: No fever, no chills, no malaise. Head: No headaches. No blurred vision. Lungs: No cough. No dyspnea. Cardiac: Past history of coronary artery bypass. At this time, no chest pains and no palpitations. Gastrointestinal: No nausea, no vomiting, no diarrhea, and no constipation. Genitourinary: No dysuria, no frequency. Extremities: Patient does have swelling in his left leg. PHYSICAL EXAMINATION: GENERAL: He is awake and alert. HEAD: Normocephalic. EYES: Extraocular motions intact. LUNGS: Bilateral breath sounds present. CHEST: Patient does have an old healed midline thoracotomy scar. CARDIAC: Regular rate and rhythm. ABDOMEN: Soft and nontender. EXTREMITIES: Patient does have a left leg old healed vein striping scar. Patient does have edema in the left leg. IMPRESSION: This is an 79-year-old gentleman with past history of diabetes and marginal zone lymphoma now with nonsmall cell lung cancer. PLAN: We are going to get a Radiation Oncology consult. We will see the patient after the Radiation Oncology consult. JAMES J. PETERS VA MEDICAL CENTERLoki
== END | disposition home or self-care (01) ==
LOC: M ONCM 11-27 10:43
PROVIDERS: ATTEND Internal Medicine Hematology & Oncology
DX: C34.92 Malignant neoplasm of unspecified part of left bronchus or lung (principal); Z85.72 Personal history of non-Hodgkin lymphomas; E11.9 Type 2 diabetes mellitus without complications; I10 Essential (primary) hypertension; J45.909 Unspecified asthma, uncomplicated; I25.10 Atherosclerotic heart disease of native coronary artery without angina pectoris; Z79.899 Other long term (current) drug therapy; Z08 Encounter for follow-up examination after completed treatment for malignant neoplasm; R91.8 Other nonspecific abnormal finding of lung field; R59.9 Enlarged lymph nodes, unspecified
CPT/HCPCS: 36415; 80053; 83615; 83735; 85025; 85027; 85610; 85730; 96367; 96375; 96413; 96417; G0463; J1100; J1200; J1642; J2469; J9045; J9267

== ENCOUNTER 2020-07-12 13:09 | Outpatient (RCR) | payer MEDICARE ==
--- NOTE | 2020-06-30 16:38 | MEDONCPDOC ---
Med Onc Office Note.txt Office Note Spoke to patient's granddaughter today, he has developed left hip pain and presented to [facility], he underwent CT scans of chest abdomen and pelvis there which I have obtained the reports of. He has developed metastatic lesions in the pelvis while on treatment for what we staged as stage III NSCLC of the MARU and mediastinum. His workup included PET-CT which showed uptake in the right femoral neck which was followed up with a bone scan on 05/12/20 which was negative. There was no evidence of bony destructive lesions on CT portions of imaging leading to the bone scan and so. Per granddaughter he will be transferred to [facility] for pain control. I will recommend palliative RT to the new bony lesions, we can facilitate this on Friday as he will need a new planning session prior to treating this site which cannot be done over the weekend. I would also continue to treat the chest on Friday as he has symptomatic hoarseness from left recurrent laryngeal nerve involvement, although the goal has undoubtedly switched from curative to palliative I would continue to treat the chest for palliation. Both the chest and pelvis can be treated concurrently. If pain control is obtained over the weekend and he is discharged he can follow up with me on Friday for his previously scheduled RT appointment. I have discussed the situation with Dr. Zuleta who has been giving him weekly chemotherapy with his chest radiation and he has additional systemic therapy options which are available to begin in the near future. I will follow peripherally while he is admitted. CC TO: Primary Care Provider: PCP,Unknown Referring Provider: MOOSE KIMBALL MD Jun 30, 2020 16:38
--- NOTE | 2020-07-05 14:10 | MEDONCPDOC ---
Med Onc Office Note.txt Date of Visit Jul 05, 2020 Office Note Spoke to patient post treatment of chest and left hip. Explained that he has pending pathologic fracture of right femoral neck, and that I recommend we irradiate this as well 20 Gy in 5 fractions. He agrees. Will update consent and schedule treatment for after completion of the left hip fractions. Overall this will not add any time to his total course as he still has >10 remaining fractions to chest. He will see Dr. Zuleta tomorrow for consideration of immunotherapy. I also called in a script for oxycodone 5 mg tablets QID PRN as he was reticent to take the morphine IR 30 mg tablets prescribed as his pain is relatively mild and he was afraid of sedation. We also briefly discussed alternatives to ongoing cancer-directed therapy such as hospice, which if he were to forego additional systemic therapy I think he would be appropriate for based on the velocity of metastatic progression we have witnessed. He stated he would like to hear about systemic therapy options tomorrow and decide afterward. CC TO: Primary Care Provider: PCP,Unknown Referring Provider: MOOSE KIMBALL MD Jul 05, 2020 14:09
[~2020-07-12 13:09] MED LIST changes: -ATIV1TAB10 PO; -CEPH500C PO; -FAMOTIDINE 20 MG IV IV ONE; -HYOS125TA PO; -MORP20SO3 PO; -NS IV ONE; -PACLITAXEL IV ONE; -PALONOSETRON 250 MCG IV IV ONE; -SODIUM CHLORIDE 0.9% INJ 10 ML SYR IV PRN; -TRAM50TA2 PO; -[UNRECOGNIZED DRUG - OTHER] IV ONE; -dexameTHASONE 10 MG IV IV ONE; -diphenhydrAMINE 25 MG IV IV ONE
--- NOTE | 2020-07-12 15:47 | MEDONCPDOC ---
Med Onc Office Note.txt Date of Visit Jul 12, 2020 Office Note Asked to see patient by therapists following RT today. Briefly, the patient brought to my attention yesterday that he was noticing some swelling and discharge from around his mediport. The skin medial to the port was indurated and red but non-tender. There was scant foul smelling drainage striking through the dressing. I prescribed keflex and sought to arrange outpatient removal. Today, the patient was noted to be SOB while on the treatment table. When I saw him he had a rapid >20 RR, appeared valente in the face, but was mentating clearly. He denied focal pain. The skin overlying the port appeared to be less red and indurated than yesterday, there was no drainage. His chest sounded relatively normal with only scattered wheezes. His vitals however, were unstable: P 130s BP 82/61 O2 83% on RA We were unable to get an accurate temp with our thermometer Because of unstable vitals and concern for a port infection versus pneumonia given the hypoxia I recommended he present to the ED. I called his daughter and she agreed, although the ultimate goal in his case per him and his daughter, is to complete palliative RT and then enter home hospice. I think removing the port and treating the infection is in his immediate best interest. While admitted, palliative care (to which I referred him last week, and he was awaiting an appointment to see) could be consulted to facilitate home hospice once he is discharged and completes RT. CC TO: Primary Care Provider: PCP,Unknown Referring Provider: MOOSE KIMBALL MD Jul 12, 2020 15:47
[2020-07-12] MEDS ORDERED: CEPH500C PO (16:25)
[2020-07-12] MEDS ORDERED: TRAM50TA2 PO (16:25)
[2020-07-14] MEDS ORDERED: ATIV1TAB10 PO (09:23)
[2020-07-14] MEDS ORDERED: HYOS125TA PO (09:23)
[2020-07-14] MEDS ORDERED: MORP20SO3 PO (09:23)
== END 2020-07-29 ==
LOC: M ONCR 13:09
PROVIDERS: ATTEND General Practice
DX: C34.12 Malignant neoplasm of upper lobe, left bronchus or lung (principal); C79.51 Secondary malignant neoplasm of bone; T80.212A Local infection due to central venous catheter, initial encounter; Z95.828 Presence of other vascular implants and grafts

== ENCOUNTER 2020-07-12 13:54 | Inpatient (IN) | payer MEDICARE ==
--- NOTE | 2020-07-12 14:37 | REPVR ---
PROCEDURE INFORMATION: Exam: XR Chest, 1 View Exam date and time: 07/12/2020 2:08 PM Age: 79 years old Clinical indication: Cough and dyspnea; Additional info: Dyspnea/cough TECHNIQUE: Imaging protocol: XR of the chest Views: 1 view. COMPARISON: OT CT CHEST W/O CONTRAST - OUTSIDE PRIOR 01/28/2020 11:00 AM FINDINGS: Tubes, catheters and devices: The 1st and 3rd sternal wires are fractured. External monitoring devices present. Lungs: Mixed interstitial and alveolar opacity present at the left lung base. Hazy alveolar opacity left upper lobe. Pleural space: See "Heart/Mediastinum" finding. Pleural thickening noted adjacent to the left-sided rib fracture Heart/Mediastinum: Surgical clips project over the left mediastinal contour patchy alveolar opacity right cardiophrenic angle. Vasculature: Distal tip of a right internal jugular line projects in expected location of superior vena cava Bones/joints: There has been a median sternotomy. Apparent dextroscoliosis of the thoracic spine. The patient is rotated to the left. The lateral aspect of the left 5th rib appears eroded and fractured. IMPRESSION: Fracture of the left lateral 5th rib. Erosion/bone resorption at the fracture ends suggests the possibility of pathologic fracture. 2. Patchy mixed interstitial/alveolar opacities at both lung bases, left greater than right. Electronically signed by: Kendra Fragoso On 07/12/2020 14:37:15 PM
[2020-07-12] MEDS ORDERED: VANCOMYCIN HCL 1,000 MG, VIAL MATE ADAPTER 1 EACH in D5W 250 ML IV ONE (14:45)
[2020-07-12] MEDS ORDERED: NS 1,000 ML IV ONE (14:45)
[2020-07-12 14:52] LABS: HEMATOCRIT 35.5 % (42.0-52.0); HEMOGLOBIN 11.6 g/dl (13.5-17.5); MEAN CORPUSCULAR HEMOGLOBIN 31.8 pg (27.0-33.0); MEAN CORPUSCULAR HGB CONC 32.7 g/dl (32.0-36.5); MEAN CORPUSCULAR VOLUME 97.3 fl (80.0-96.0); PLATELET COUNT, AUTOMATED 155 10^3/uL (150-450); RED BLOOD COUNT 3.65 10^6/uL (4.30-6.10); WHITE BLOOD COUNT 5.8 10^3/uL (4.0-10.0)
[2020-07-12 15:16] LABS: ATYPICAL LYMPH 1 % (0-5); LYMPHOCYTES 6 % (16-44); METAMYELOCYTES 1 % (0-0); MONOCYTES 5 % (0-5); MYELOCYTES 1 % (0-0); NEUTROPHILS 65 % (28-66)
[2020-07-12 15:17] LABS: ANISOCYTOSIS 1+
[2020-07-12 15:18] LABS: PLATELET ESTIMATE DECREASED (NORMAL)
[2020-07-12 15:24] LABS: ALBUMIN 2.8 GM/DL (3.2-5.2); ALT/SGPT 23 U/L (12-78); BILIRUBIN,DIRECT 0.9 MG/DL (0.0-0.2); BILIRUBIN,TOTAL 1.4 MG/DL (0.2-1.0); BLOOD UREA NITROGEN 26 MG/DL (7-18); CALCIUM LEVEL 9.5 MG/DL (8.8-10.2); CARBON DIOXIDE LEVEL 26 MEQ/L (21-32); CHLORIDE LEVEL 95 MEQ/L (98-107); CK-MB VALUE MASS < 1.0 NG/ML (<3.6); CPK CREATINE PHOSPHOKINASE 33 U/L (39-308); CREATININE FOR GFR 1.74 MG/DL (0.70-1.30); GLOMERULAR FILTRATION RATE 40.4 (>35); GLUCOSE, FASTING 155 MG/DL (70-100); MB/CK RELATIVE INDEX 3.03 (< OR =4); NT-PRO BNP 14493 PG/ML (<450); POTASSIUM SERUM 4.6 MEQ/L (3.5-5.1); SODIUM LEVEL 131 MEQ/L (136-145); TOTAL PROTEIN 6.2 GM/DL (6.4-8.2); TROPONIN I 0.03 NG/ML (< 0.10)
[2020-07-12] MEDS ORDERED: CEPH500C PO (16:25)
[2020-07-12] MEDS ORDERED: TRAM50TA2 PO (16:25)
--- NOTE | 2020-07-12 16:33 | HPEPDOC ---
[facility] Medical History & Physical Date of Admission Jul 12, 2020 Date of Service: Jul 12, 2020 History and Physical CHIEF COMPLAINT: Infected infusaport HISTORY OF PRESENT ILLNESS: 79 yo male sent by his radiation/oncologist for suspicion of infected mediport - found to be red, with foul smelling discharge. Patient has extensive history of Stage IV NSCLC, receiving palliative RT. Patient is essentially DNR/DNI with very limited intervention, and is requesting hospice evaluation and placement. PMHx #marginal zone lymphoma #NSCLC #DM #HTN #CAD #Gout #asthma ALLERGIES: Please see below. REVIEW OF SYSTEMS: Negative except as per HPI. HOME MEDICATIONS: Please see below. PHYSICAL EXAMINATION: VITAL SIGNS: See below General: NAD, lying comfortably in bed, chronically ill appearing HEENT: NC/AT, EOMI Chest: right anterior chest port in place, coarse breath sounds Heart: +S1S2, tachy Abd: soft, NT, +BS Ext: bilateral edema Psych: alert, awake, oriented to person, place, time and situation LABORATORY DATA: See below. MICROBIOLOGY: Please see below. A/P: 79 yo male sent by radiation oncologist for infected mediport, for port removal and hospice evaluation. #infected mediport - IR consultation for tomorrow morning for port removal #afib/RVR - monitor on telemetry - blood pressures on the low side - patient is requesting limited intervention, but is open to treatment is he becomes symptomatic - currently asymptomatic #marginal zone lymphoma/NSCLC #DM #HTN #asthma - respiratory treatments #gout #CAD #DVT prophylaxis Dispo: Plan of care discussed at length with patient at bedside. Patient states clearly he does with to stay in the hospital for removal of his port, antibiotics, and hospice consultation. He states he would like to be setup at [facility]. Vital Signs Vital Signs Date Time Temp Pulse Resp B/P (MAP) Pulse Ox O2 Delivery O2 Flow Rate FiO2 07/12/20 14:03 98.1 129 22 106/58 (74) 85 Nasal Cannula Laboratory Data Labs 24H Laboratory Tests 2 07/12/20 14:30: Neutrophils (%) (Auto) , Nucleated Red Blood Cells % (auto) 0.5H, Neutrophils 65, Band Neutrophils 21H, Lymphocytes (Manual) 6L, Monocytes (Manual) 5, Metamyelocytes 1H, Myelocytes 1H, Atypical Lymphocytes 1, Anisocytosis 1+, Platelet Estimate DECREASED, Anion Gap 10, Glomerular Filtration Rate 40.4, Calcium Level 9.5, Total Bilirubin 1.4H, Direct Bilirubin 0.9H, Aspartate Amino Transf (AST/SGOT) 29, Alanine Aminotransferase (ALT/SGPT) 23, Alkaline Phosphatase 134H, Total Creatine Kinase 33L, Creatine Kinase MB < 1.0, Creatine Kinase MB Relative Index 3.03, Troponin I 0.03, OE-Ary-P-Type Natriuretic Pepti de 27881A, Total Protein 6.2L, Albumin 2.8L, Albumin/Globulin Ratio 0.8, Thyroid Stimulating Hormone (TSH) 1.400 07/12/20 14:34: Lactic Acid Level 5.1*H CBC/BMP Laboratory Tests 07/12/20 14:30 Microbiology Microbiology 07/12/20 Blood Culture, Received Pending 07/12/20 Blood Culture, Received Pending Home Medications Scheduled Allopurinol (Allopurinol) 100 Mg Tab, 200 MG PO DAILY Aspirin (Aspirin EC) 81 Mg Tab, 81 MG PO DAILY Cephalexin (Cephalexin) 500 Mg Capsule, 500 MG PO TID FOR 7 DAYS, STARTED 07/12/20 Cetirizine HCl (Cetirizine HCl) 10 Mg Tab, 10 MG PO DAILY Cyclobenzaprine HCl (Cyclobenzaprine HCl) 10 Mg Tablet, 10 MG PO QHS Furosemide (Furosemide) 40 Mg Tablet, 40 MG PO DAILY Gabapentin (Neurontin) 600 Mg Tab, 600 MG PO BID Glimepiride (Glimepiride) 4 Mg Tab, 4 MG PO DAILY Insulin Glargine,Hum.rec.anlog (Lantus Solostar) 100 Unit/Ml Inj, 22 UNIT SC QAM Lactobacillus Acidophilus (Probiotic Acidophilus) 1 Cap Cap, 1 CAP PO DAILY Metoprolol Tartrate (Lopressor) 50 Mg Tab, 50 MG PO BID Multivitamins (Thera M Plus Tablet) 1 Tab Tab, 1 TAB PO EVERY OTHER DAY Omeprazole (Omeprazole) 40 Mg Capsule.dr, 40 MG PO DAILY Potassium Chloride (Potassium Chloride) 10 Meq Capsule.er, 10 MEQ PO DAILY Terbinafine HCl (Terbinafine) 30 Gm Cream..g., 1 APLCT TOP BID APPLY TO ABDOMEN Scheduled PRN Acetaminophen (Acetaminophen) 325 Mg Tablet, 650 MG PO Q4HP PRN for PAIN OR FEVER Albuterol Sulfate (Proair Hfa) 108 Mcg/Act Aer, 2 PUFF INH Q4H PRN for SOB/WHEEZING Morphine Sulfate (Morphine Sulfate) 30 Mg Tablet, 15 MG PO Q4HP PRN for SEVERE PAIN (PS 8-10) Sennosides/Docusate Sodium (Senokot-S Tablet) 1 Each Tablet, 1 TAB PO BIDP PRN for CONSTIPATION Tramadol HCl (Tramadol HCl) 50 Mg Tablet, 50 MG PO Q6H PRN for PAIN Allergies Coded Allergies: oxycodone (Verified Adverse Reaction, Severe, MAKES HIM GO CRAZY, 01/26/19) A-FIB/CHADSVASC A-FIB History Current/History of A-Fib/PAF?: Yes Current PO Anticoag Therapy: No Treatment Treatment ordered: NONE Reason Anticoagulant not given: Other Other reason anticoagulant not: HOSPICE FREDERICK GARCIA MD Jul 12, 2020 16:33
[2020-07-12] MEDS ORDERED: GLUCOSE 4GM CHEW TABLET PO PRN (16:45)
[2020-07-12] MEDS ORDERED: traMADol 50 MG TAB PO PRN (16:45)
[2020-07-12] MEDS ORDERED: DEXTROSE 50% 50 ML SYRINGE IV PRN (16:45)
[2020-07-12] MEDS ORDERED: MORPHINE 30 MG TAB **MSIR PO PRN (16:45)
[2020-07-12] MEDS ORDERED: GLUCAGON INJ 1MG VIAL SC PRN (16:45)
[2020-07-12] MEDS ORDERED: SENOKOT S TAB PO PRN (16:45)
[2020-07-12] MEDS ORDERED: ACETAMINOPHEN TAB 650MG DOSE (2X325MG) PO PRN (16:45)
[2020-07-12] MEDS ORDERED: PILL CUTTER 1 EACH XX PRN (17:00)
[2020-07-12] MEDS ORDERED: HumaLOG INSULIN (NovoLOG) PER UNIT SC SCH ×2 (17:30→21:00)
[2020-07-12 18:50] VITALS: BP 107/60
[2020-07-12] MEDS ORDERED: SLF 3 ML SYR IV PRN (19:00)
[2020-07-12 20:00] VITALS: BP 91/56
[2020-07-12] MEDS ORDERED: LEVALBUTEROL 1.25 MG/0.5 ML CONCENTRATE NEB INH PRN (20:00)
[2020-07-12] MEDS ORDERED: IPRATROPIUM 0.02% SOLN 0.5MG 2.5ML NEB INH SCH (20:00)
[2020-07-12] MEDS ORDERED: LEVALBUTEROL 1.25 MG/0.5 ML CONCENTRATE NEB INH SCH (20:00)
[2020-07-12] MEDS ORDERED: IPRATROPIUM 0.02% SOLN 0.5MG 2.5ML NEB INH PRN (20:00)
[2020-07-12] MEDS ORDERED: SCOPOLAMINE 1MG TRANSDERMAL PATCH TOP PRN ×2 (21:00→22:45)
[2020-07-12] MEDS ORDERED: METOPROLOL TART 50 MG TAB PO SCH (21:00)
[2020-07-12] MEDS ORDERED: LORazepam 1 MG TAB PO PRN ×2 (21:00→22:45)
[2020-07-12] MEDS ORDERED: ONDANSETRON 4MG/2ML VIAL IV PRN (21:00)
[2020-07-12] MEDS ORDERED: CYCLOBENZAPRINE 10MG TABLET PO SCH (21:00)
[2020-07-12] MEDS ORDERED: MORPHINE 2 MG/ML 1ML VIAL (J2270) IV PRN ×2 (21:00→22:45)
[2020-07-12] MEDS ORDERED: SLF 3 ML SYR IV SCH (22:00)
[2020-07-12] MEDS ORDERED: ATROPINE SULFATE 1% OP SOLN 2 ML BTL SL PRN (22:45)
[2020-07-13 08:00] VITALS: BP 130/68
[2020-07-13] MEDS ORDERED: ASPIRIN 81 MG ENTERIC TAB PO SCH (09:00)
[2020-07-13] MEDS ORDERED: allopurinoL 100 MG TAB PO SCH (09:00)
[2020-07-13] MEDS ORDERED: CETIRIZINE (ZyrTEC) 10 MG TAB PO SCH (09:00)
[2020-07-13] MEDS ORDERED: POTASSIUM CHLORIDE 10 MEQ SR TABLET PO SCH (09:00)
--- NOTE | 2020-07-13 09:13 | IPNPDOC ---
Text Note Date of Service The patient was seen on 07/13/20. NOTE Subjective: Patient seen and examined at bedside. No acute overnight events reported. Patient has no new medical complaints this morning. 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 Objective: VITAL SIGNS: See below General: NAD, lying comfortably in bed, chronically ill appearing HEENT: NC/AT, EOMI Chest: right anterior chest port in place, coarse breath sounds Heart: +S1S2, tachy Abd: soft, NT, +BS Ext: bilateral edema Psych: alert, awake, oriented to person, place, time and situation A/P: 79 yo male sent by radiation oncologist for infected mediport, for port removal and hospice evaluation. 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 Hospice consultation pending. Patient expressed desire for hospice house. Updates: Today he is agreeable with going home with hospice. Discussed with PFS. Notified later in day that IR unable to remove port as inpatient. Will resume his diet. VS,Fishbone, I+O VS, Fishbone, I+O Laboratory Tests 07/12/20 14:30 Vital Signs Date Time Temp Pulse Resp B/P (MAP) Pulse Ox O2 Delivery O2 Flow Rate FiO2 07/13/20 08:00 98.8 126 18 130/68 (88) 90 Nasal Cannula 4.0 I&O- Last 24 Hours up to 6 AM 07/13/20 06:00 Intake Total 1270 ml Output Total 0 ml Balance 1270 ml FREDERICK GARCIA MD Jul 13, 2020 09:13
[2020-07-13] MEDS ORDERED: MORPHINE 10MG/0.5ML ORAL CONCENTRATE SOLUTION U/D SL PRN (17:15)
[2020-07-13] MEDS ORDERED: LORazepam 2 MG/ML VIAL IM PRN (17:15)
--- NOTE | 2020-07-13 19:10 | ECGEPIP ---
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
[2020-07-14] MEDS ORDERED: MORP20SO3 PO (09:23)
[2020-07-14] MEDS ORDERED: ATIV1TAB10 PO (09:23)
[2020-07-14] MEDS ORDERED: HYOS125TA PO (09:23)
--- NOTE | 2020-07-14 13:52 | DS.PDOC ---
Discharge Summary General Date of Admission Jul 12, 2020 at 16:44 Date of Discharge 07/14/20 Specialist/Consultants Involve interventional radiology radiation oncology Discharge Summary PROCEDURES PERFORMED DURING STAY: [None]. ADMITTING DIAGNOSES: 1. 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 HPI/HOSPITAL COURSE: 79 yo male sent by his radiation/oncologist for suspicion of infected mediport - found to be red, with foul smelling discharge. Patient has extensive history of Stage IV NSCLC, receiving palliative RT. Patient is essentially DNR/DNI with very limited intervention, and is requesting hospice evaluation and placement. He was also noted to be in afib with RVR. Patient voiced no complaints regarding his mediport, or palpitations/chest pain. Patient was admitted to facilitate removing his port, and setting him up for hospice care. Initially he opted for hospice house, but changed his mind and was agreea ble to home hospice. Initially it was also thought his mediport would be able to be removed as inpatient, but this was deferred to outpatient follow up. His MOLST form on admission was somewhat conflicting, which was also clarified with the patient, and his family for [facility] REPA[employer]. He was discharged home with hospice. DISCHARGE MEDICATIONS: Please see below. ALLERGIES: Please see below. PHYSICAL EXAMINATION ON DISCHARGE: VITAL SIGNS: See below General: NAD, lying comfortably in bed, chronically ill appearing HEENT: NC/AT, EOMI Chest: right anterior chest port in place, coarse breath sounds Heart: +S1S2, tachy Abd: soft, NT, +BS Ext: bilateral edema Psych: alert, awake, oriented to person, place, time and situation LABORATORY DATA: Please see below. ACTIVITY: [As tolerated]. DISPOSITION: 50 Hospice Home. DISCHARGE INSTRUCTIONS: 1. Follow up with PCP and/or hospice. DISCHARGE CONDITION: [Stable]. TIME SPENT ON DISCHARGE: 35 minutes. Vital Signs/I&Os Vital Signs Date Time Temp Pulse Resp B/P (MAP) Pulse Ox O2 Delivery O2 Flow Rate FiO2 07/13/20 20:00 4.0 07/13/20 08:00 98.8 126 18 130/68 (88) 90 Nasal Cannula I&O- Last 24 Hours up to 6 AM 07/14/20 06:00 Intake Total 240 ml Output Total 0 ml Balance 240 ml Microbiology Microbiology 07/12/20 Blood Culture - Preliminary, Resulted No growth after 24 hours . All specim... 07/12/20 Blood Culture - Preliminary, Resulted No growth after 24 hours . All specim... Discharge Medications Scheduled Allopurinol (Allopurinol) 100 Mg Tab, 200 MG PO DAILY, (Reported) Furosemide (Furosemide) 40 Mg Tablet, 40 MG PO DAILY, (Reported) Gabapentin (Neurontin) 600 Mg Tab, 600 MG PO BID, (Reported) Omeprazole (Omeprazole) 40 Mg Capsule.dr, 40 MG PO DAILY, (Reported) Scheduled PRN Albuterol Sulfate (Proair Hfa) 108 Mcg/Act Aer, 2 PUFF INH Q4H PRN for SOB/WHEEZING, (Reported) Hyoscyamine Sulfate (Hyoscyamine Sulfate) 0.125 Mg Tab.subl, 0.125 MG PO Q4HP PRN for TERMINAL SECRETIONS Use sublingually if unable to swallow Lorazepam (Ativan) 0.5 Mg Tablet, 0.5 MG PO Q4HP PRN for ANXIETY/AGITATION Use sublingually if unable to swallow Morphine Sulfate (Morphine Sulfate) 100 Mg/5 Ml Solution, 0.25-1 ML PO Q2H PRN for PAIN OR DYSPNEA Use sublingually if unable to swallow Allergies Coded Allergies: oxycodone (Verified Adverse Reaction, Severe, MAKES HIM GO CRAZY, 01/26/19) FREDERICK GARCIA MD Jul 14, 2020 13:52
== END 2020-07-14 12:15 | disposition hospice, home (50) | DRG 314 ==
LOC: M ED 13:54 → M ED INP 16:44 → ENRESERV 17:02 → M PCU 18:45
PROVIDERS: ADMIT Internal Medicine; ATTEND Internal Medicine
DX: T82.7XXA Infection and inflammatory reaction due to other cardiac and vascular devices, implants and grafts, initial encounter (principal); A41.9 Sepsis, unspecified organism; J96.01 Acute respiratory failure with hypoxia; C34.90 Malignant neoplasm of unspecified part of unspecified bronchus or lung; C85.90 Non-Hodgkin lymphoma, unspecified, unspecified site; N17.9 Acute kidney failure, unspecified; Y83.1 Surgical operation with implant of artificial internal device as the cause of abnormal reaction of the patient, or of later complication, without mention of misadventure at the time of the procedure; E11.9 Type 2 diabetes mellitus without complications; I10 Essential (primary) hypertension; I25.10 Atherosclerotic heart disease of native coronary artery without angina pectoris; Z51.5 Encounter for palliative care; Z66 Do not resuscitate; M10.9 Gout, unspecified; J45.909 Unspecified asthma, uncomplicated; I48.91 Unspecified atrial fibrillation; Z79.82 Long term (current) use of aspirin; Z79.899 Other long term (current) drug therapy; Z79.4 Long term (current) use of insulin; Z88.5 Allergy status to narcotic agent